=== PATIENT | male | born 1940 | race Caucasian/White ===

== ENCOUNTER → 2016-03-02 | Outpatient (CLI) | payer OTHER | LOC: HRAD 12:32 | DX: I20.9 Angina pectoris, unspecified (principal) ==

== ENCOUNTER 2017-05-17 09:09 | Day surgery (SDC) | payer OTHER ==
[~2017-05-17] VITALS: Ht 177.8 cm; Wt 91.1 kg
[2017-05-17] MEDS ORDERED: IOHEXOL 350 MG/ML 100 ML BTL (for Cath Lab) OTHER ONE (09:10)
[2017-05-17 09:25] VITALS: BP 130/82; PULSE 58; RESP 17; TEMP 97.6; O2SAT 97
[2017-05-17] MEDS ORDERED: ISOS30TA3 PO (10:05)
[2017-05-17] MEDS ORDERED: ZOSTCRE TOPICAL (10:05)
[2017-05-17] MEDS ORDERED: FLUT50SP EACH NARE (10:05)
[2017-05-17] MEDS ORDERED: METF500T PO ×2 (10:05→13:57)
[2017-05-17] MEDS ORDERED: METO50TA PO (10:05)
[2017-05-17] MEDS ORDERED: SYMB80AE INH (10:05)
[2017-05-17] MEDS ORDERED: HYDR1CRE RECTAL (10:05)
[2017-05-17] MEDS ORDERED: FLUO20CA12 PO (10:05)
[2017-05-17] MEDS ORDERED: LOVA40TA PO (10:05)
[2017-05-17] MEDS ORDERED: ECASA81 PO (10:05)
[2017-05-17] MEDS ORDERED: CLOP75TA PO (10:05)
[2017-05-17 10:09] LABS: AUTOMATED NEUTROPHIL # 5.1 TH/MM3 (1.8-7.7); BASOPHIL % 0.6 % (0.0-2.0); EOSINOPHIL # 0.5 TH/MM3 (0-0.4); HEMATOCRIT 41.5 % (39.0-51.0); HEMOGLOBIN 14.1 GM/DL (13.0-17.0); LYMPH % 21.3 % (9.0-44.0); LYMPHOCYTE # 1.6 TH/MM3 (1.0-4.8); MEAN CELL VOLUME 94.3 FL (80.0-100.0); MEAN CORPUSCULAR HGB CONC 33.9 % (32.0-36.0); MEAN PLATELET VOLUME 10.2 FL (7.0-11.0); MONO % 6.1 % (0.0-8.0); MONOCYTE # 0.5 TH/MM3 (0-0.9); PLATELET COUNT 171 TH/MM3 (150-450); RED CELL DISTRIBUTION WIDTH 13.3 % (11.6-17.2); WHITE BLOOD COUNT 7.7 TH/MM3 (4.0-11.0)
[2017-05-17 10:15] LABS: INTERNATIONAL NORMALIZED RATIO 1.1 RATIO; PROTHROMBIN TIME - PATIENT 11.4 SEC (9.8-11.6)
[2017-05-17] MEDS ORDERED: SODIUM CHLOR 0.9% 1000 ML INJ 1,000 ML IV SCH (10:15)
[2017-05-17 10:27] LABS: BICARBONATE 28.3 MEQ/L (21.0-32.0); CALCIUM 8.5 MG/DL (8.5-10.1); CREATININE 1.23 MG/DL (0.60-1.30)
[2017-05-17] MEDS ORDERED: MIDAZOLAM HCL 2 MG/2 ML VIAL ONE (12:44)
[2017-05-17] MEDS ORDERED: NITROGLYCERIN INJ 5 ML ONE (12:44)
[2017-05-17] MEDS ORDERED: HEPARIN-NS/PF FLUSH BAG 2,000 ML IV FLUSH ONE (12:44)
[2017-05-17] MEDS ORDERED: VERAPAMIL HCL 5 MG/2 ML VIAL ONE (12:44)
[2017-05-17] MEDS ORDERED: HEPARIN SODIUM - IV 10,000 UNITS/10 ML VIAL ONE (12:44)
--- NOTE | 2017-05-17 13:49 | CATHPROC ---
[facility]dog HIS Report Study Information Study Number Admission Scheduled Start Study Start [id number] May 17 2017 9:09AM 05/17/2017 May 17 2017 12:36PM [place] Service Cardiac Catheterization Admit Source Facility Department Other [facility] - Power Press Tender Physician and Clinical Staff Initial Shankar Bernard Material Liaison Adenike Berumen,JUSTICE Recorder Andreas Simmons,RT(R) Scrub Vanessa Oneal,RT(R) Procedures Performed Procedure Location (Site) Vessel Name Coronary Angiograms LCA Left Coronary Coronary Angiograms RCA Right Coronary IVUS Lft Main Left Coronary L Heart Cath Wire insertion Radial (right) Radial Art. Equipment Time Dowel Setting Machine Operator Description Size Mfg Part Number Used/Scraped WIRE, BALANCE MIDDLEWEIGHT [id number] 13:22 [employer] 190CM Used 190CM *[id number] TRANSDUCER, TRUWAVE [id number] 12:42 VILA ROSA * Used W/STOCKCOCK *[id number] *[id number] *[id number] 12:42 [employer] PACK, CCL CUSTOM * Used *[id number] 12:42 [employer] SUPPORT, ARTERIAL ADULT 97640 *[id number] Used [id number] 13:19 MEDTRON[employer]/AVE EBU 3.5 Z2 GUIDE CATHETER FR 6 Used *[id number] BAND, RADIAL COMPRESSION TR [id number] 13:35 [employer] MEDICAL 24CM Used SHORT 24 *[id number] 12:42 [employer] WIRE, EXCHANGE 260CM 3MMJ 260CM Used *[id number] 12:42 NAMIC MANIFOLD, 4 PORT * Used *[id number] 12:42 NYCOMED OMNIPAQUE, 350 MG, 150ML 150ML [id number] Used [id number] 12:42 LEIV[employer] MEDICAL BLANKET,WARM AIR CCL * Used *[id number] SHEATH, FR6 TRANSRADIAL [id number] 12:42 TERPhybridge MEDICAL FR 6 Used SLENDER 10CM *[id number] CATHETER, [facility] [employer] [place] [id number] 13:18 VOL[employer]O Used IMAGING *[id number] Equipment Model, Serial, Lot Number and Expiration Data Description Model Number Serial Number Lot Number Expiration Date CATHETER, [employer] [id number] 01-05-2019 IMAGING History: Current Medications Medication Dosage/Unit Route Frequency Last Date/Time Taken ASA PLAVIX Statins (any) LOPRESSOR History: Allergies Allergy Reaction pravastatin History: Risk Factors Family History of Hypertension Dyslipidemia Previous MT Previous Heart Failure Premature CAD Yes Yes Yes No No Prior Valve Prior PCI Prior PCIDate Prior CABG Surgery No Yes 04/06/2016 No Cerebrovascular Peripheral Artery Chronic Lung On Dialysis Diabetes Diabetes Therapy Disease Disease Disease No Yes No Yes Yes Oral History: Risk Factors Selection Items Diabetes Hypercholesterolemia-Lipid Low. Therapy History: CV Disease Selection Items Known CAD History: Stress Tests Stress or Imaging Studies Performed Yes Standard Exercise Stress Test No Stress Echo No Stress Test SPECT Stress Test SPECT Result Stress Test SPECT Ischemia Risk/Extent Yes Positive Low Stress Test CMR No Cardiac CTA Coronary Calcium Score No No History: Other Disease Selection Items CAD COPD HTN History: Other Current Smoker No Labs Hgb (g/dl) Hct (%) RBC (MIL/MM3) WBC (l/cumm) Platelets (thousands) 11.60-17.00 35.00-51.00 4.00-5.90 4.00-11.00 150.00-450.00 14.1 41.5 4.4 7.7 171 Glucose (mg/dl) BUN (mg/dl) Creatinine (mg/dl) BUN:Creatinine (1:x) 74.00-106.00 7.00-18.00 0.50-1.30 10.00-20.00 115 17 1.2 14.2 Na (meq/l) K (meq/l) Cl (meq/l) CO2 (mmol/L) Ca (mg/dl) 136.00-145.00 3.50-5.10 98.00-107.00 21.00-32.00 8.50-10.10 140 4.2 106 28.3 8.5 PT (sec) PTT (sec) INR (PTT:PT) 9.80-11.60 24.30-30.10 0.90-1.10 11.4 25.7 1.1 CPK-MB (ng/ML) 0.50-3.60 Not Drawn Medication Medication Total Dose (Bolus/Oral) Medication Total Dosage/Unit 1% XYLOCAINE 5 mL FENTANYL 25 mcg HEPARIN 5500 units RADIAL COCKTAIL 5 mL (Bolus) VERSED 0.5 mg Medications (Bolus/Oral) Medication Time Given Dosage/Unit Administered By Reason FENTANYL 05/17/2017 1:06:41 PM 25 mcg Adenike Berumen 25 mcg FENTANYL given in lab by Adenike Berumen RN in Left Forearm via Peripheral IV. VERSED 05/17/2017 1:06:52 PM 0.5 mg Adenike Berumen 0.5 mg VERSED given in lab by Adenike Berumen RN in Left Forearm via Peripheral IV. 1% XYLOCAINE 05/17/2017 1:07:03 PM 5 mL Shankar Paul 5 mL 1% XYLOCAINE given in lab by Shankar Paul in Right Radial via Subcutaneous. Ntg 200mcg Verapamil 2.5mg Heparin RADIAL COCKTAIL 05/17/2017 1:09:34 PM 5 mL (Bolus) Shankar Paul 3000U 5 mL (Bolus) RADIAL COCKTAIL given in lab by Shankar Paul via Radial. Using [Solution Name]. R ector: Ntg 200mcg Verapamil 2.5mg Heparin 3600U. HEPARIN 05/17/2017 1:19:50 PM 5500 units Adenike Berumen 5500 units HEPARIN given in lab by Adenike Berumen RN in Left Forearm via Peripheral IV. Medication (Drip) Medication Time Given Dosage/Unit Concentration/Unit Diluent (ml) Solution IV Solutions 05/17/2017 12:40:54 PM 0 mL (IV) 500 NaCl .9 IV Solutions given in lab by Adenike Berumen RN in Left Forearm via Peripheral IV. Pump/Drip Flow = 20 ml/hr using NaCl .9. Initial Case Assessment Cardiovascular HR Rhythm Chest Pain 56 Sinus 0 Edema Present Skin color Skin None Normal Warm Dry Circulatory - Right Pulses Dorsalis Pedis Femoral Radial 1 2 2 Scale (0,1,2,3,4,d) Scale (0,1,2,3,4,d) Neurological State Oriented to time-place- Alert Moves all extremities person Respiration - General Respiration Rate SpO2 (%) O2 (lpm) (B/min) 11 99 0 Final Case Assessment Cardiovascular HR Rhythm NIBP Chest Pain 57 Sinus 145/81 0 Edema Present Skin color Skin None Normal Warm Dry Circulatory - Right Pulses Dorsalis Pedis Femoral Radial 1 2 2 Scale (0,1,2,3,4,d) Scale (0,1,2,3,4,d) Neurological State Oriented to time-place- Alert Moves all extremities person Respiration - General Respiration Rate SpO2 (%) O2 (lpm) (B/min) 10 98 0 Chronological Log Time Study Chronological Log 12:33:36 Patient arrived via Bed. 12:36:50 Patient Name, D.O.B, / Armband Verified By R.N. 12:36:51 Consent signed by the physician and the patient and verified by the Power Press Tender staff. 12:36:52 Pre-op and post- op instructions given; patient acknowledges understanding of instructions. 12:36:53 Verbal Stimulation=2 Physical Stimulation=2 Airway=2 Respiration=2 TOTAL=8. (0=absent, 1=li mited, 2=present) 12:36:57 Presedation assessment performed by Power Press Tender RN. 12:36:58 Allens test performed on the right radial and ulnar artery. 12:37:01 Patient has been NPO for More than 6Hrs. 12:37:03 Skin Breakdown- none per patient. 12:37:03 Patient Warmer Placed on the Table. 12:37:06 Saul Prominences Protected 12:37:08 A # 20 IV was noted in the Forearm (left). Grade = 0 IV Solutions given in lab by Adenike Berumen, JUSTICE in Left Forearm via Peripheral IV. Pump/Drip F low = 20 ml/hr using 12:40:54 NaCl .9. 12:41:16 History and physical on the chart or being dictated. Assessment: Initial Case, HR=56 BPM, Rhythm=Sinus, Chest Pain=0, Edema=None, Color=Normal, Skin = Warm, Dry Right Pulses: Tony Ped=1, Femoral=2, Radial=2 12:41:18 Neurological: State=Alert, Ox3, SOTO Respiration: Resp=11 B/min, SpO2=99 %, O2=0 lpm Vitals capture started with the following parameters, Patient=Adult, Interval=5 min, Initial Pr nxpdjx=272 mmHg, 12:41:36 Deflation Rate=5 mmHg, Cuff placed on Unknown 12:41:54 Reference ECG taken 12:42:53 HR=57 bpm, WHKJ=538/96 mmhg, SpO2=99.0 %, Resp=6 B/min, Pain=0, Mary=10, Buck=2 12:47:13 HR=54 bpm, ZWYG=012/93 mmhg, SpO2=99.0 %, Resp=10 B/min, Pain=0, Mary=10, Buck=2 12:49:14 Right Radial and groin(s) prepped with 2% chlorhexidine, and draped after a 3 min. waiting time. 12:52:12 paged 12:52:16 HR=56 bpm, YRMF=109/96 mmhg, MsU0=332.0 %, Resp=5 B/min, Pain=0, Mary=10, Buck=2 12:53:04 Pressure channel 1 zeroed. 12:57:19 HR=60 bpm, XRFG=978/87 mmhg, PjJ6=968.0 %, Resp=11 B/min, Pain=0, Mary=10, Buck=2 13:02:03 MD arrived. 13:02:14 HR=60 bpm, FFSU=415/90 mmhg, OoN8=676.0 %, Resp=5 B/min, Pain=0, Mary=10, Buck=2 Time Out. Correct patient, correct procedure, correct physician, power injector not loaded with contrast with surgical 13:06:08 team present. Time Out Concurred by MD and individual staff in procedure. 13:06:20 Case Start 13:06:41 25 mcg FENTANYL given in lab by Adenike Berumen RN in Left Forearm via Peripheral IV. 13:06:52 0.5 mg VERSED given in lab by Adenike Berumen, JUSTICE in Left Forearm via Peripheral IV. 13:07:03 5 mL 1% XYLOCAINE given in lab by Shankar Paul in Right Radial via Subcutaneous. 13:07:15 HR=61 bpm, PKVO=664/92 mmhg, QrU0=232.0 %, Resp=13 B/min, Pain=0, Mary=10, Buck=2 13:08:19 Access site was Radial Artery. A SHEATH, FR6 TRANSRADIAL SLENDER 10CM FR 6 was advanced into the Radial (right) using the Perc utaneous 13:08:27 technique. 5 mL (Bolus) RADIAL COCKTAIL given in lab by Shankar Paul via Radial. Using [Solution Na me]. Reason: Ntg 13:09:34 200mcg Verapamil 2.5mg Heparin 3600U. A JR 4.0 INFINITI CATHETER FR 5 was advanced over a wire. OMNIPAQUE, 350 MG, 150ML 150ML was us ed for 13:09:50 injections. Recorded Pressure: LV, HR=62, Condition=Condition 1 13:10:49 (Left Ventricle) LV 112/3/12 Recorded Pressure: LV, Ao, HR=59, Condition=Condition 1 13:11:07 (Left Ventricle) LV 108/5/12, (Aorta) Ao 108/61/82 13:11:33 The RCA was injected and visualized at various angles. OMNIPAQUE, 350 MG, 150ML 150ML used . Recorded Pressure: Ao, HR=57, Condition=Condition 1 13:11:39 (Aorta) Ao 104/62/79 13:12:23 HR=61 bpm, LENS=355/62 mmhg, SpO2=94.0 %, Resp=7 B/min, Pain=0, Mary=10, Buck=2 After removing the current catheter a JL 3.5 INFINITI CATHETER FR 5 was advanced over a WIRE, E XCHANGE 260CM 13:12:55 3MMJ 260CM. 13:15:37 The LCA was injected and visualized at various angles. OMNIPAQUE, 350 MG, 150ML 150ML used . 13:17:45 Catheter was removed 13:17:52 HR=63 bpm, DHCK=025/78 mmhg, SpO2=94.0 %, Resp=13 B/min, Pain=0, Mary=10, Buck=2 A EBU 3.5 Z2 GUIDE CATHETER FR 6 was advanced over a wire. OMNIPAQUE, 350 MG, 150ML 150ML was u sed for 13:19:13 injections. 13:19:50 5500 units HEPARIN given in lab by Adenike Berumen, RN in Left Forearm via Peripheral IV. 13:20:57 Wire removed 13:22:19 HR=61 bpm, BLJM=625/83 mmhg, SpO2=96.0 %, Resp=13 B/min, Pain=0, Mary=10, Buck=2 13:26:13 A WIRE, BALANCE MIDDLEWEIGHT 190CM 190CM was inserted via Radial (right). 13:27:18 HR=61 bpm, WVZW=806/80 mmhg, SpO2=95.0 %, Resp=13 B/min, Pain=0, Mary=10, Buck=2 13:27:33 Interventional wire has crossed the lesion 13:27:38 An CATHETER, [employer] was advanced through the lesion. Images saved o o IVUS hard drive 13:28:46 IVUS in progress using ivus 13:32:19 HR=55 bpm, NGKB=622/81 mmhg, SpO2=96.0 %, Resp=9 B/min, Pain=0, Mary=10, Buck=2 13:32:28 IVUS catheter removed 13:34:26 Wire removed 13:35:00 Case End Assessment: Final Case, HR=57 BPM, Rhythm=Sinus, LHGR=105/81 mmhg, Chest Pain=0, Edema=None, Color=Normal, Skin = Warm, Dry 13:35:10 Right Pulses: Tony Ped=1, Femoral=2, Radial=2 Neurological: State=Alert, Ox3, SOTO Respiration: Resp=10 B/min, SpO2=98 %, O2=0 lpm Radial Compression Device Used. 11 mLs of air placed in BAND, RADIAL COMPRESSION TR SHORT 24 24 CM. Affected 13:36:41 hand 98 % O2 saturation. 13:37:03 No case complications noted. 13:37:04 Cine recording checked. 13:37:47 Bedside Report will be given. 13:37:53 A Left Heart Cath was performed. 13:38:03 HR=58 bpm, XBZE=408/88 mmhg, SpO2=98.0 %, Resp=11 B/min, Pain=0, Mary=10, Buck=2 13:42:21 HR=58 bpm, DUEK=293/84 mmhg, SpO2=98.0 %, Resp=10 B/min, Pain=0, Mary=10, Buck=2 13:46:03 Patient moved to stretcher 13:47:17 Vitals capture stopped. End Study - Contrast Media Used In Study Contrast Total Opened (mL) Total Used (mL) Total Wasted (mL) Omnipaque 150 65 85 End Study - Maximum Contrast Load Max Contrast Load (mL) 379.2 End Study - Radiation Exposure Fluoro Time (minutes) 6.6 End Study - Patient Disposition Complications Transferred To Interventional Outcome No Outpatient Bed No attempt made
[2017-05-17] MEDS ORDERED: MISC INFORMATION XX ONE (14:00)
--- NOTE | 2017-05-17 15:28 | PD.CAR.PN ---
CVT Progress Note Subjective/Hospital Course: pt seen and evaluated / full consult to follow sts discussed with pt RISK SCORES About the STS Risk Calculator Procedure: CAB Only Risk of Mortality: 2.004% Morbidity or Mortality: 15.18% Long Length of Stay: 6.047% Short Length of Stay: 40.35% Permanent Stroke: 1.492% Prolonged Ventilation: 8.954% DSW Infection: 0.544% Renal Failure: 5.236% Reoperation: 5.474% Objective: Vital Signs Date Time Temp Pulse Resp B/P (MAP) Pulse Ox O2 Delivery O2 Flow Rate FiO2 05/17/17 09:25 97.6 58 17 130/82 (98) 97 Labs: Laboratory Tests Test 05/17/17 09:45 White Blood Count 7.7 TH/MM3 (4.0-11.0) Red Blood Count 4.40 MIL/MM3 (4.50-5.90) Hemoglobin 14.1 GM/DL (13.0-17.0) Hematocrit 41.5 % (39.0-51.0) Mean Corpuscular Volume 94.3 FL (80.0-100.0) Mean Corpuscular Hemoglobin 32.0 PG (27.0-34.0) Mean Corpuscular Hemoglobin Concent 33.9 % (32.0-36.0) Red Cell Distribution Width 13.3 % (11.6-17.2) Platelet Count 171 TH/MM3 (150-450) Mean Platelet Volume 10.2 FL (7.0-11.0) Neutrophils (%) (Auto) 66.0 % (16.0-70.0) Lymphocytes (%) (Auto) 21.3 % (9.0-44.0) Monocytes (%) (Auto) 6.1 % (0.0-8.0) Eosinophils (%) (Auto) 6.0 % (0.0-4.0) Basophils (%) (Auto) 0.6 % (0.0-2.0) Neutrophils # (Auto) 5.1 TH/MM3 (1.8-7.7) Lymphocytes # (Auto) 1.6 TH/MM3 (1.0-4.8) Monocytes # (Auto) 0.5 TH/MM3 (0-0.9) Eosinophils # (Auto) 0.5 TH/MM3 (0-0.4) Basophils # (Auto) 0.0 TH/MM3 (0-0.2) CBC Comment DIFF FINAL Differential Comment Prothrombin Time 11.4 SEC (9.8-11.6) Prothromb Time International Ratio 1.1 RATIO Activated Partial Thromboplast Time 25.7 SEC (24.3-30.1) Blood Urea Nitrogen 17 MG/DL (7-18) Creatinine 1.23 MG/DL (0.60-1.30) Random Glucose 115 MG/DL (74-106) Calcium Level 8.5 MG/DL (8.5-10.1) Sodium Level 140 MEQ/L (136-145) Potassium Level 4.2 MEQ/L (3.5-5.1) Chloride Level 106 MEQ/L (98-107) Carbon Dioxide Level 28.3 MEQ/L (21.0-32.0) Anion Gap 6 MEQ/L (5-15) Estimat Glomerular Filtration Rate 57 ML/MIN (>89) Result Diagram: 05/17/17 0945 05/17/17 0945 Ivelisse Fagan May 17, 2017 15:28
[2017-05-17 15:44] LABS: TOTAL BILIRUBIN ADULT 0.4 MG/DL (0.2-1.0); TOTAL PROTEIN 7.5 GM/DL (6.4-8.2)
[2017-05-17 16:05] LABS: ALBUMIN 3.8 GM/DL (3.4-5.0); DIRECT BILIRUBIN ADULT 0.1 MG/DL (0.0-0.2); INDIRECT BILIRUBIN 0.3 MG/DL (0.0-0.8)
--- NOTE | 2017-05-17 16:20 | MB ---
cc: Ivelisse Fagan Sohit MD DATE: 05/17/2017 DATE OF : 1940 HISTORY OF PRESENT ILLNESS: A 76-year-old male, patient of Dr. Vicki Stark, Dr. Paul, who is followed also by the [facility]. History of coronary artery disease with prior drug-eluting stent to the LAD in April 2016. He has been noticing some off and on mild chest discomfort but significant shortness of breath and fatigue since January 2017. He underwent nuclear stress testing with the [facility] and then underwent cardiac catheterization today by Dr. Paul, which showed an EF of 65%. The left main had a 70% stenosis, the diagonal 90%, the RCA 90%. We were consulted for coronary artery bypass grafting. PAST MEDICAL HISTORY: Includes coronary artery disease, kidney stones, COPD, depressive disorder, primary essential hypertension, some hearing loss, hyperlipidemia, hypertension, osteoarthritis, schizophrenia, diabetes mellitus on oral medications. Please note that he has a history of some left carotid disease, approximately 70-80% and was supposed to followup for probable carotid endarterectomy by Dr. Nogueira in [place] at the [facility]. PAST SURGICAL HISTORY: Include cardiac catheterization on 04/22/2017 with drug-eluting stent x2 to the LAD. He had a cyst removed from his back, parathyroidectomy, tonsillectomy, and lithotripsy. ALLERGIES: INCLUDE PRAVACHOL, however, he can tolerate lovastatin. HOME MEDICATIONS: Include: 1. Aspirin. 2. Capsaicin. 3. Plavix. 4. Prozac. 5. Flonase. 6. Imdur. 7. Lovastatin. 8. Metformin. 9. Metoprolol. 10. Symbicort. FAMILY HISTORY: Father at 71 from an [place]. Mother at 80 from a stroke. SOCIAL HISTORY: The patient is single. Quit smoking in 1960, smoked for about 8 years. Occasional alcohol. Lives alone, takes care of himself. REVIEW OF SYSTEMS: GENERAL: No night sweats, fever, heat and cold intolerance. SKIN: No psoriasis, itching or hives. HEENT: No blurred vision, hearing loss. RESPIRATORY: Positive for shortness of breath. CARDIOVASCULAR: As above in the HPI. GASTROINTESTINAL: Occasional constipation. GENITOURINARY: No burning, frequency, urgency. CENTRAL NERVOUS SYSTEM: No history of TIA, CVA or seizure disorder. ENDOCRINOLOGY: Positive for diabetes. PHYSICAL EXAMINATION: VITAL SIGNS: Blood pressure 130/80, heart rate of 58, temperature-max 97.6. GENERAL: Awake, alert, in no acute distress. HEENT: Head is normocephalic, atraumatic. Pupils equal and reactive. Oral mucosa pink, moist. NECK: Supple. No JVD. CARDIOVASCULAR: Hear sounds S1, S2. Regular rate and rhythm. No audible rubs or gallops. LUNGS: Clear to auscultation. No wheezes, rales or rhonchi. ABDOMEN: Soft, nontender. No masses or organomegaly. EXTREMITIES: No cyanosis, clubbing, or edema. LABORATORY DATA: Hemoglobin 14, hematocrit of 41, white cell count of 7, platelet count of 171. Sodium 140, potassium 4.2, BUN is 17, creatinine 1.23. INR 1.1. X-RAYS: Chest x-ray pending. IMPRESSION: A 76-year-old male with multivessel coronary artery disease, normal ejection fraction with a 70% left main. PLAN: At this time the patient will be scheduled as an outpatient for coronary artery bypass grafting x4 on May. The procedures, alternatives and risks have been discussed with the patient. He is agreeable to proceed. SDS data will be discussed with the patient and documented in the electronic record. The patient must hold the Plavix 5 days prior to surgery. TOREY Cote MD JRT/FLOR , 03:46 PM , 04:19 PM RADHA
--- NOTE | 2017-05-17 16:31 | RADRPT ---
EXAM DATE/TIME: 05/17/2017 15:14 [facility] COMPARISON: No previous studies available for comparison. INDICATIONS : Evaluate for pneumonia, pneumothorax, or other communicable disease. MEDICAL HISTORY : None. SURGICAL HISTORY : None. ENCOUNTER: Initial ACUITY: 1 day PAIN SCORE: 0/10 LOCATION: Bilateral chest FINDINGS: A single view of the chest demonstrates the lungs to be symmetrically aerated without evidence of mas s, infiltrate or effusion. The cardiomediastinal contours are unremarkable. Scattered granulomas in both lungs. Osseous structures are intact. CONCLUSION: No acute disease. Yuri Tillman MD FACR on May 17, 2017 at 16:28 Board Certified Radiologist. This report was verified electronically.
--- NOTE | 2017-05-17 16:34 | RADRPT ---
EXAM DATE/TIME: 05/17/2017 15:24 [facility] COMPARISON: No previous studies available for comparison. INDICATIONS : Preop cardiac surgery. MEDICAL HISTORY : Hyperlipidemia. Coronary artery disease. HTN. Diabetes. Sleep apnea. COPD. SURGICAL HISTORY : Coronary artery stent. Cardiac cath. ENCOUNTER: Initial ACUITY: 1 day PAIN SCORE: 0/10 LOCATION: Bilateral leg. TECHNIQUE: Venous ultrasound of the left and right leg was performed from the inguinal ligament to the proximal calf. Real-time, color Doppler and spectral tracing, compression and augmentation techniques were us ed. FINDINGS: RIGHT LEG: There is normal compressibility of the deep venous system from the inguinal region to the proximal ca lf. No echogenic clot is seen in the lumen of the common femoral, femoral, popliteal, and posterior tibial veins. There is a normal response of the venous system to proximal and distal augmentation an d respiration. LEFT LEG: There is normal compressibility of the deep venous system from the inguinal region to the proximal ca lf. No echogenic clot is seen in the lumen of the common femoral, femoral, popliteal, and posterior tibial veins. There is a normal response of the venous system to proximal and distal augmentation an d respiration. CONCLUSION: Negative for DVT thrombosis Yuri Tillman MD FACR on May 17, 2017 at 16:32 Board Certified Radiologist. This report was verified electronically.
--- NOTE | 2017-05-17 16:49 | RADRPT ---
EXAM DATE/TIME: 05/17/2017 15:31 [facility] COMPARISON: No previous studies available for comparison. INDICATIONS : Preop cardiac surgery. MEDICAL HISTORY : Hyperlipidemia. Coronary artery disease. HTN. Diabetes. Sleep apnea. COPD. SURGICAL HISTORY : Coronary artery stent. Cardiac cath. ENCOUNTER: Initial ACUITY: 1 day PAIN SCORE: 0/10 LOCATION: Bilateral leg. GREATER SAPHENOUS VEIN THIGH: PROXIMAL: Right 8 mm Left 4 mm MID: Right 4 mm Left 2 mm DISTAL: Right 3 mm Left 2 mm CALF: PROXIMAL: Right 2 mm Left 2 mm MID: Right 1 mm Left 2 mm DISTAL: Right 3 mm Left 2 mm FINDINGS: The venous system of the lower extremities are patent by color Doppler imaging. Measurements of the leg veins (in mm) are listed above. CONCLUSION: Vein mapping as above Yuri Tillman MD FACR on May 17, 2017 at 16:46 Board Certified Radiologist. This report was verified electronically.
--- NOTE | 2017-05-17 16:49 | RADRPT ---
EXAM DATE/TIME: 05/17/2017 15:51 [facility] COMPARISON: No previous studies available for comparison. INDICATIONS : Preop cardiac surgery. MEDICAL HISTORY : Hyperlipidemia. Coronary artery disease. HTN. Diabetes. Sleep apnea. COPD. SURGICAL HISTORY : Coronary artery stent. Cardiac cath. ENCOUNTER: Initial ACUITY: 1 day PAIN SCORE: 0/10 LOCATION: Bilateral neck PEAK SYSTOLIC VELOCITIES (cm/sec): ICA/CCA RATIO: Right: 1.2 Left: 8.0 ICA: Right: 116 Left: 512 CCA: Right: 94 Left: 64 ECA: Right: 105 Left: 207 VERTEBRAL: Right: 36 retrograde Left: 103 antegrade Elevated flow velocities and ICA/CCA ratios have been found to correlate with increased degrees of vessel stenosis, calculated as percentage of diameter relative to a normal segment of distal ICA/CCA FINDINGS: RIGHT CAROTID: No significant stenosis is visualized. The waveforms are within normal limits. LEFT CAROTID: No significant stenosis is visualized. The waveforms are within normal limits. VERTEBRAL ARTERIES: Antegrade flow is seen in both vertebral arteries. MISCELLANEOUS: None. CONCLUSION: Negative for hemodynamically significant stenosis Yuri Tillman MD FACR on May 17, 2017 at 16:46 Board Certified Radiologist. This report was verified electronically.
--- NOTE | 2017-05-17 17:16 | EKG ---
Date Performed: 05/17/2017 Time Performed: 10:06:36 PTAGE: 76 years EKG: Sinus rhythm . Inferior T wave changes are nonspecific Borderline ECG NO PREVIOUS TRACING DOCTOR: Nate Coyle Interpretating Date/Time 05/17/2017 17:15:55
[2017-05-17 19:24] LABS: AMORPHOUS SEDIMENT, URINE OCC; BILIRUBIN, URINE NEG (NEG); BLOOD, URINE NEG (NEG); GLUCOSE,URINE NEG (NEG); KETONE, URINE NEG (NEG); NITRITE,URINE NEG (NEG); PH, URINE 7.5 (5.0-8.5); URINE COLOR YELLOW (YELLW/STRAW); URINE LEUKOCYTE ESTERASE NEG (NEG)
--- NOTE | 2017-05-18 01:01 | MA ---
cc: Shankar Paul DO DATE: 05/17/2017 PROCEDURE: Left heart catheterization, coronary angiogram, moderate sedation 30 minutes, intravascular ultrasound left main. PREPROCEDURE DIAGNOSES: Preoperative cardiovascular examination, abnormal stress test, chest pain. 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 MEDICATIONS: Versed 0.5 mg, fentanyl 25 mcg, verapamil 2.5 mg, nitroglycerin 200 mcg, heparin 9100 units. CONTRAST USED: 65 mL FLUOROSCOPY: 6.6 minutes. MODERATE SEDATION: 30 minutes. FRAILTY SCORE: 3. ESTIMATED BLOOD LOSS: 10 mL PROCEDURAL SUMMARY: Augustus Maradiaga is a pleasant 76-year-old male who I see in the office and is undergoing preoperative cardiovascular exam for carotid endarterectomy. He was found to have an abnormal stress test at the [facility] and recommended cardiac catheterization. Risks, benefits and alternatives were explained to him and he consented to such. He was brought to the lab and prepped in the usual sterile fashion. The right radial artery was accessed using a modified Seldinger technique and placement of a 5/6 [place] Slender sheath. This was easily aspirated and flushed. A JR4 was advanced over a J-wire to the ascending aorta and across the aortic valve for measurement of left ventricular pressure. This was pulled back across the aortic valve showing no significant gradient of aortic stenosis. JR4 was used for selective angiography of the right coronary artery system. This was exchanged out for a JL3.5, which was used for selective angiography of the left coronary artery system. Due to significant dampening when a catheter was engaged in left main I felt that this needed to be further investigated. An EBU 3.5 guide was engaged in the left main. The patient was given heparin as an anticoagulant. BMW wire was advanced into the distal LAD. IVUS catheter was advanced into the LAD and upon pullback recordings were done. Review of the images showed that the distal left main has an area of 5.0 and the ostial left main has an area of 5.6 consistent with physiologic stenosis. The wire was removed. Guide was removed. A radial band was placed over the arteriotomy site for hemostasis. FINDINGS: LEFT MAIN: 70% disease. By IVUS this is an area of 5.0 distally and 5.6 ostially, consistent with severe stenosis. It bifurcates into an LAD and circumflex. LEFT ANTERIOR DESCENDING: Normal size vessel with stent in the proximal to mid portion, patent. Stent noted in the distal portion is also patent. It gives off 1 major diagonal which appears to be pinched with a 90% stenosis in the ostial portion due to previous stent placement. LEFT CIRCUMFLEX: Normal size vessel with mild luminal irregularities. It gives off a major obtuse marginal with no significant disease. RIGHT CORONARY ARTERY: Normal size vessel with mild luminal irregularities distally. It gives off a PDA, which has 50% disease and then an 80% lesion in the posterolateral branch. LEFT VENTRICULAR END DIASTOLIC PRESSURE: 12. IMPRESSIONS: 1. Multivessel coronary artery disease with left main disease as above. 2. Preoperative cardiovascular examination for carotid endarterectomy. 3. Abnormal stress test. 4. Chest pain. RECOMMENDATIONS: 1. Mr. Maradiaga appears to have significant left main disease as well as disease noted in his diagonal and posterolateral branch. 2. He will be recommended coronary artery bypass grafting. This was discussed with cardiothoracic surgery and they will see him in consultation. 3. [facility] and most likely repeat his carotid ultrasound while here. 4. I feel that he is safe to be discharged on his current medical regimen and follow up with CT surgery for elective coronary artery bypass grafting. 5. This was discussed with him and he understands no strenuous activity until surgery. If he has any further chest pain, he will present to the emergency room immediately and we will reevaluate the timing of his operation. Thank you for allowing me to see Augustus Maradiaga. If there are any questions please to not hesitate to call. Shankar Paul DO VGP/rt , 12:39 AM , 01:00 AM
--- NOTE | 2017-05-19 09:02 | RSPPFT ---
DATE OF PROCEDURE: 05/17/17 COMMENTS: Spirometry shows FVC of 3.6 at 117% of predicted, FEV1 of 2.6 at 119%, FEV1/FVC is normal. Flow is normal at FEF 25-75. Flow volume loop indicates a normal pattern. IMPRESSION: 1. Normal spirometry. 2. Post-bronchodilator study was not done.
== END 2017-05-17 18:30 | disposition home or self-care (01) ==
LOC: HDOC 09:09 → HDIC 09:12 → HDOC 18:30
PROVIDERS: ATTEND Nuclear Medicine Nuclear Cardiology
DX: I25.10 Atherosclerotic heart disease of native coronary artery without angina pectoris (principal); I10 Essential (primary) hypertension; E78.5 Hyperlipidemia, unspecified; E11.9 Type 2 diabetes mellitus without complications; J44.9 Chronic obstructive pulmonary disease, unspecified; G47.30 Sleep apnea, unspecified; R06.02 Shortness of breath; R53.83 Other fatigue; R07.9 Chest pain, unspecified; F20.9 Schizophrenia, unspecified; F32.9 Major depressive disorder, single episode, unspecified; Z79.84 Long term (current) use of oral hypoglycemic drugs; Z87.442 Personal history of urinary calculi; Z95.5 Presence of coronary angioplasty implant and graft; Z79.82 Long term (current) use of aspirin
CPT/HCPCS: 71045; 80048; 80076; 81001; 85025; 85610; 85730; 86850; 86900; 86901; 87641; 92978; 93005; 93458; 93880; 93970; 93998; 94010; 99152; 99153; C1753; C1769; C1887; C1893; J1644; J2250; J3010; Q9967

== ENCOUNTER 2017-05-29 05:10 | Inpatient (IN) | payer OTHER, MEDICARE ==
[~2017-05-29] VITALS: Ht 177.8 cm; Wt 93.6 kg
[2017-05-29] VITALS (10 sets, daily range): BP systolic 81–140; BP diastolic 39–77; PULSE 59–75; RESP 11–18; TEMP 97.4–97.9; O2SAT 91–100
[~2017-05-29 05:10] MED LIST: CLOP75TA PO; ECASA81 PO; FLUO20CA12 PO; FLUT50SP EACH NARE; HYDR1CRE RECTAL; ISOS30TA3 PO; LOVA40TA PO; METF500T PO; METO50TA PO; SYMB80AE INH; ZOSTCRE TOPICAL
[2017-05-29] MEDS ORDERED: CHLORHEXIDINE GLUCONATE 2 % 1 PACK (2 CLOTHS) TOPICAL PRN (05:30)
[2017-05-29] MEDS ORDERED: INSULIN REGULAR 100 UNITS in NS 100 ML IV PRN (05:30)
[2017-05-29] MEDS ORDERED: SODIUM CHLORIDE 0.9% FLUSH 10 ML FLUSH IV FLUSH PRN ×2 (05:30→12:15)
[2017-05-29] MEDS ORDERED: DEXTROSE 50% IN WATER 50 ML VIAL(D50) IV PUSH PRN ×2 (05:30→12:15)
[2017-05-29] MEDS ORDERED: ceFAZolin 2 GM PREMIX 50 ML IV SCH (05:30)
[2017-05-29] MEDS ORDERED: LACTATED RINGER'S 1000 ML IV PRN (05:30)
[2017-05-29] MEDS ORDERED: CHLORHEXIDINE GLUCONATE 4% SOLN 120 ML BTL TOPICAL SCH (05:30)
[2017-05-29] MEDS ORDERED: METOPROLOL TARTRATE 25 MG TAB PO SCH (05:30)
[2017-05-29] MEDS ORDERED: POVIDONE IODINE 5% (ANTISEPSIS KIT) 4 APPLICATIONS EACH NARE PRN (05:30)
[2017-05-29] MEDS ORDERED: SODIUM CHLORID 0.9% 500 ML IV PRN (05:30)
[2017-05-29] MEDS ORDERED: ceFAZolin 2 GM PREMIX 50 ML ONE (06:31)
[2017-05-29] MEDS ORDERED: VANCOMYCIN HCL 1000 MG VIAL ONE (06:31)
[2017-05-29] MEDS ORDERED: HEPARIN SODIUM - SQ 10,000 UNITS/ML VIAL ONE ×2 (06:31→06:32)
--- NOTE | 2017-05-29 08:34 | PD.CAR.PN ---
CVT Progress Note Subjective/Hospital Course: A 76-year-old male, patient of Dr. Vicki Stark, Dr. Paul, who is followed also by the [facility]. Initially seen 05/17/17.History of coronary artery disease with prior drug-eluting stent to the LAD in April 2016. He has been noticing some off and on mild chest discomfort but significant shortness of breath and fatigue since January 2017. He underwent nuclear stress testing with the [facility] and then underwent cardiac catheterization today by Dr. Paul, which showed an EF of 65%. The left main had a 70% stenosis, the diagonal 90%, the RCA 90%. PAST MEDICAL HISTORY: Includes coronary artery disease, kidney stones, COPD, depressive disorder, primary essential hypertension, some hearing loss, hyperlipidemia, hypertension, osteoarthritis, schizophrenia, diabetes mellitus He also has history of some left carotid disease, approximately 70-80% and was supposed to followup for probable carotid endarterectomy by Dr. Nogueira in [place] at the [facility]. PAST SURGICAL HISTORY: Include cardiac catheterization on 04/22/2017 with drug- eluting stent x2 to the LAD. 05/29 pt admitted electively for CABG Objective: Vital Signs Date Time Temp Pulse Resp B/P (MAP) Pulse Ox O2 Delivery O2 Flow Rate FiO2 05/29/17 05:35 97.7 66 15 144/85 (104) 94 (1) Hyperlipemia (2) Hypertension (3) Carotid artery disease (4) Coronary artery disease (5) COPD (chronic obstructive pulmonary disease) (6) Depression Ivelisse Fagan May 29, 2017 08:34
--- NOTE | 2017-05-29 08:44 | HHI.FF ---
Face to Face Verification Diagnosis: (1) S/P CABG (coronary artery bypass graft) (2) COPD (chronic obstructive pulmonary disease) (3) Coronary artery disease (4) Depression (5) Hyperlipemia (6) Hypertension (7) Carotid artery disease Home Health Nursing Order: Diabetic education Medication education-adverse effect Wound care and dressing changes Nursing assessment with vital signs Instructions: Heart and Vascular Surgery patients *Special attention to sternal dressing Mandatory frequency Assess and evaluation, 4 days in a row The next week 3X week 2 times a week for 4 weeks 1 time a week for 5 weeks Schedule Heart and Vascular patients for full 60 day certification period Initial visit Review Open Heart Surgery Discharge Instructions (Sternal precautions, Activity, Elastic hose, Incision care, Driving, Incentive spirometry, Smoking, [place], Work and other) Need Betadine to paint incision Medication reconciliation Importance of follow up care/ check on appointments Make calendar record temperature daily When to call [facility] nurse, review instructions, phone list Incentive Spirometry, demonstration Visit 1- Begin discharge instruction for patient family and/ or caregiver using teach back method- Signs and symptoms of infection Disease characteristics Medicines and side effects Foods and nutrition/ appetite Infection control/ hand washing/ hygiene Visit 2- Continue teaching Discharge instructions- include additional information on smoking cessation , sternal dressing (sternal vac) Visit 3- Continue teaching- Cough and deep breathing, incision monitoring. Choose my plate Visit 4- Continue teaching- Discuss limitations Discuss how they are feeling Discuss progress toward goals Remaining visits- continue teaching and monitoring For any questions please call : Monday 8am-5pm Heart & Vascular Surgery Office ( Dr. Nguyen & Dr. De Leon), After Hours / Nights (5pm -8am) Weekends and Holidays Please call [facility] Cardiac Intermediate Care Unit (CIC) Charge Nurse PREVENA Single Use Negative Wound Therapy System Caregiver Instruction Sheet 1. A Prevena dressing system was applied to the chest incision during surgery , to promote wound healing. It works via a suction device (negative pressure wound therapy) to remove low to moderate levels of exudate (drainage) and infectious materials. We recommend that the device stay in place for up to seven days, from day of surgery. 2. Day of Surgery__/ Day of Removal ___06/05/17 3. The dressing should only be removed by a health director career services. Please arrange removal of device to coincide with Home Health visit and or with Nursing staff at Rehab 4. If skin reddening or irritation of skin occurs, or excessive drainage, please notify the Cardiovascular Surgeons office at [phone]. 5. Light showering is permissible; however the pump should be disconnected and placed in safe location, where it will not get wet. The dressing should not be exposed to direct spray or submerged in water. No bath tub / shower only. Ensure the end of the tubing attached to the dressing is facing down so that water does not enter the top of the tube. 6. To remove Prevena dressing: press purple button to turn off device / remove the suction. Then disconnect the tubing from the pump. The fixation strips should be stretched away from the skin and the dressing lifted at one corner and peeled back until it has been fully removed. 7. After removal, it is ok to shower daily using liquid dial soap and clean wash cloth, rinse and pat dry, and leave incision open to air dry. For any concerns regarding Prevena dressing, and or wounds, please contact Gwen Rodriguez, patient navigator at [phone] or notify the Cardiovascular Surgeons office at [phone]. Incentive spirometry Q1 hr x 10, while awake, also use acapella device hourly whole awake Sternal Breast Bone Precautions: NO pushing or pulling, ( pt must use sternal pillow to support chest with all activities and with coughing ( takes up to 3 months breast bone to heal ) Daily incision care: ok to shower daily, no tub bath. Wash all incisions with liquid dial soap, clean wash cloth to each site, rinse and pat dry. Observe for any signs of infection, such as drainage which is dark yellow, cooper, green or foul smelling. Immediately report to the surgeon any drainage from the chest incision, or legs, and for any abnormal drainage from the chest tube sites. Notify surgeon if any temp >101.5 degrees F. When specialty dressing removed/ or if you do not have one, continue to shower daily as above, then rinse and pat incision dry and paint with betadine daily x 5 days. Allow steri strips to fall off if you have any. Avoid lotions, creams, salves, oils, etc. for the first month Please see attached forms for additional instructions regarding post Open Heart specialty wound vacuum dressings. AURE or Prevena , Dressing to be removed by Nursing staff on __06/05/17 F/U appointment: as per DC instructions: PCP in 2 weeks, CV surgeon 2 weeks, Erp Manager 3-4 weeks For any questions regarding incisions/ dressing / meds / post op care or above Symptoms, Monday 8am-5pm Heart & Vascular Surgery Office ( Dr. Nguyen & Dr. De Leon), After Hours / Nights (5pm -8am) Weekends and Holidays Please call [facility] Cardiac Intermediate Care Unit (CIC) Charge Nurse I have seen patient Augustus Maradiaga on 05/29/17. My clinical findings support the need for the requested home health care services because: Deconditioned w/ increased weakness I certify that my clinical findings support that this patient is homebound because: Post-op weakness Ivelisse Fagan May 29, 2017 08:44
[2017-05-29] MEDS: CEFAZOLIN 500 MG in NS IRR BTL 500 ML IRRIGATION SCH ×2 (09:43→11:14)
[2017-05-29] MEDS: PAPAVERINE 60 MG-NITROGLYCERIN 100 MCG-DILTIAZEM 100 MG in NS 100 ML IRRIGATION SCH ×8 (09:45→11:15)
[2017-05-29] MEDS ORDERED: PHENYLEPH/NS 1000 MCG/10 ML SYR IV ONE (12:00)
[2017-05-29] MEDS ORDERED: LACTATED RINGER'S 1000 ML INJ 2,000 ML IV ONE (12:00)
[2017-05-29] MEDS ORDERED: LIDOCAINE HCL 1% PF 5 ML AMPULE OTHER ONE (12:00)
[2017-05-29] MEDS ORDERED: MAGNESIUM SULFATE 1 GM/2 ML VIAL IV ONE (12:00)
[2017-05-29] MEDS ORDERED: PROTAMINE SULFATE 250 MG/25 ML VIAL IV ONE (12:00)
[2017-05-29] MEDS ORDERED: CALCIUM CHLORIDE 10% SOLN 1 GRAM/10 ML SYR IV ONE (12:00)
[2017-05-29] MEDS ORDERED: HEPARIN SODIUM - SQ 10,000 UNITS/ML VIAL OTHER ONE (12:00)
[2017-05-29] MEDS ORDERED: NORMOSOL R INJ 1,000 ML IV ONE (12:00)
[2017-05-29] MEDS ORDERED: DEXMEDETOMIDINE HCL 200 MCG/2 ML VIAL IV ONE (12:00)
[2017-05-29] MEDS ORDERED: GLYCOPYRROLATE 0.2 MG/ML VIAL IV ONE (12:00)
[2017-05-29] MEDS ORDERED: ePHEDrine/NS 25 MG/5 ML SYRINGE IV ONE (12:00)
[2017-05-29] MEDS ORDERED: AMINOCAPROIC ACID INJ 250 MG/ML 20 ML VIAL IV ONE (12:00)
[2017-05-29] MEDS ORDERED: SODIUM CHLORID 0.9% 500 ML INJ 500 ML IV ONE (12:00)
[2017-05-29] MEDS ORDERED: SODIUM CHLOR 0.9% 250 ML INJ 250 ML IV ONE (12:00)
[2017-05-29] MEDS ORDERED: VECURONIUM BROMIDE 10 MG VIAL IV ONE (12:00)
[2017-05-29] MEDS ORDERED: NEOSTIGMINE METHYLSULFATE 10 MG/10 ML VIAL IV PUSH ONE (12:00)
[2017-05-29] MEDS ORDERED: NS 100 ML (PAB BAG) 100 ML IV ONE (12:00)
[2017-05-29] MEDS ORDERED: ceFAZolin INJ 1,000 MG VIAL ONE (12:10)
[2017-05-29] MEDS ORDERED: ACETAMINOPHEN 650 MG SUPP RECTAL PRN (12:15)
[2017-05-29] MEDS ORDERED: RESP: RACEPINEPHRINE 2.25% 0.5 ML NEB NEB PRN (12:15)
[2017-05-29] MEDS ORDERED: POTASSIUM CHLORIDE 20 MEQ CONTROLLED RELEASE TAB PO PRN ×2 (12:15)
[2017-05-29] MEDS ORDERED: POTASSIUM CHLOR 20 MEQ PREMIX 100 ML IV PRN ×3 (12:15)
[2017-05-29] MEDS ORDERED: CALCIUM CHLORIDE 10% 1 GRAM/10 ML VIAL IV PUSH PRN (12:15)
[2017-05-29] MEDS ORDERED: Post-op Orders (for Pharmacy) OTHER ONE (12:15)
[2017-05-29] MEDS ORDERED: SODIUM BICARBONATE 8.4% SOLN 50 MEQ/50 ML VIAL IV PUSH PRN ×2 (12:15)
[2017-05-29] MEDS ORDERED: MAGNESIUM SULFATE INJ 2 GM in SODIUM CHLORIDE 0.9% INJ 100 ML IV PRN ×4 (12:15)
[2017-05-29] MEDS ORDERED: CALCIUM CHLORIDE INJ 1 GM in SODIUM CHLORIDE 0.9% INJ 100 ML IV PRN (12:15)
--- NOTE | 2017-05-29 12:23 | PD.OP ---
cc: Leticia Nguyen MD; Shankar Paul DO Operative Report Date of Surgery: May 29, 2017 Preoperative Diagnosis: Postoperative Diagnosis: Procedure: 1. Off-pump Coronary Artery Bypass Grafting x 4 with Left Internal Mammary Artery (ALFRED) to Left Anterior Descending (LAD), reverse saphenous vein graft to the Diagonal 1 (D1) branch of the LAD, reverse saphenous vein graft to the Posterolateral Branch of the Right Coronary Artery (RPLB), reverse saphenous vein graft to the Obtuse Marginal 1 (OM1) 2. Right Leg Endoscopic Vein [place] 3. Intraoperative Vein Mapping Surgeon: Leticia Nguyen Brown Sourer(s): Joshua Gonzalez Operation and Findings: PREPROCEDURE DIAGNOSES 1. Severe Multi Vessel Coronary Artery Disease. 2. Left Main Stenosis POSTPROCEDURE DIAGNOSES Same SURGICAL PROCEDURE 1. Off-pump Coronary Artery Bypass Grafting x 4 with Left Internal Mammary Artery (ALFRED) to Left Anterior Descending (LAD), reverse saphenous vein graft to the Diagonal 1 (D1) branch of the LAD, reverse saphenous vein graft to the Posterolateral Branch of the Right Coronary Artery (RPLB), reverse saphenous vein graft to the Obtuse Marginal 1 (OM1) 2. Right Leg Endoscopic Vein [place] 3. Intraoperative Vein Mapping SURGEON Leticia Nguyen MD INVENTORY ASSISTANT Kallie Gonzalez PA-C ANESTHESIA General endotracheal PROJECT CONTROL ANALYST BE Gilman MD PREPARATION ChloraPrep. COUNTS Needle, sponge, and instrument counts were correct. DRAINS Two 32-English mediastinal tubes. COMPLICATIONS None. INDICATIONS FOR PROCEDURE The patient is a 76-year-old presenting with chest pain. Patient was noted to have multi-vessel coronary artery disease with left main component. The patient is being brought to the operating room for surgical revascularization therapy. PROCEDURE Patient was brought to the operating room and placed supine on the OR table. Following the induction of adequate general endotracheal anesthesia and placement of appropriate monitoring devices, intraoperative vein mapping was performed which revealed suitable-caliber conduit in bilateral thighs. The patient was then prepped and draped in standard sterile fashion. Next, 2500 units of intravenous heparin was given. The right greater saphenous vein was harvested endoscopically. This appeared to be a useable-caliber conduit. Simultaneously, a median sternotomy was performed and the left internal mammary artery dissected free off the posterior sternal table. The patient was systemically heparinized and anticoagulation monitored by serial ACT measurements. The internal mammary artery had good pulsatile flow in it and was a good-caliber conduit. The pericardium was then divided in the midline, the cradle created and targets analyzed. At this point, all anastomoses were performed in a beating-heart fashion using the Maquet stabilizing system. The left internal mammary artery was anastomosed to the distal LAD (1.75 mm) in an end-to-side fashion using 7-0 Prolene. Segment of saphenous vein graft was then anastomosed to the D1 (1.75 mm) in an end-to-side fashion using 7-0 Prolene. The next segment of saphenous vein graft was then anastomosed to theOM1 (2 mm) in an end-to-side fashion using 7-0 Prolene.The final segment of saphenous vein graft was then anastomosed to the RPLB (1.75 mm) in an end-to-side fashion using 7-0 Prolene. The proximal anastomoses were then constructed to the ascending aorta in a running manner using 6-0 Prolene. All anastomotic sites were inspected and appeared to be hemostatic and patent. Protamine solution was given. Strict hemostasis was assured. The closure was undertaken. 2 chest tubes were placed. The pericardium was reapproximated in the midline. The sternum was approximated using sternal wires. The muscular and fascial layer were then closed in 3 layers. The endoscopic vein harvest site was closed in 2 layers. The patient tolerated the procedure well and was transferred to CVICU in stable condition. Leticia Nguyen MD May 29, 2017 12:23
[2017-05-29] MEDS ORDERED: ACETAMINOPHEN 325 MG TAB PO PRN (13:00)
[2017-05-29] MEDS ORDERED: MORPHINE SULFATE 4 MG/ML INJ IV PUSH PRN (13:00)
[2017-05-29] MEDS ORDERED: INSULIN REGULAR (IV INFUSION) 100 UNITS in SODIUM CHLORIDE 0.9% INJ 99 ML IV PRN (13:00)
[2017-05-29] MEDS: DEXMEDETOMIDINE 200 MCG in NS 48 ML IV PRN ×2 (13:00→13:45)
[2017-05-29] MEDS ORDERED: MEPERIDINE HCL 25 MG/ML VIAL IV PUSH PRN (13:00)
[2017-05-29] MEDS ORDERED: fentaNYL CITRATE 250 MCG/5 ML AMP ONE (13:06)
[2017-05-29] MEDS ORDERED: MIDAZOLAM HCL 2 MG/2 ML VIAL ONE ×2 (13:06)
[2017-05-29] MEDS ORDERED: DOBUTamine PREMIX DRIP 250 ML IV PRN (14:00)
[2017-05-29] MEDS ORDERED: hydrALAZINE HCL 20 MG/ML VIAL IV PUSH PRN (14:00)
[2017-05-29] MEDS ORDERED: METOPROLOL TARTRATE 5 MG/5 ML VIAL IV PUSH PRN (14:00)
[2017-05-29] MEDS ORDERED: PHENYLEPHRINE INJ 40 MG in DEXTROSE 5% IN WATE 500 ML INJ 496 ML IV PRN ×2 (14:00)
[2017-05-29] MEDS ORDERED: LACTATED RINGER'S 1000 ML INJ 500 ML IV PRN (14:00)
[2017-05-29] MEDS ORDERED: NITROGLYCERIN-D5W 50 MG/250 ML 250 ML IV PRN (14:00)
[2017-05-29] MEDS ORDERED: DEXMEDETOMIDINE INJ 200 MCG in SODIUM CHLORIDE 0.9% INJ 50 ML IV PRN (14:00)
[2017-05-29] MEDS ORDERED: DOPamine 800 MG/500 ML INJ 500 ML IV PRN (14:00)
[2017-05-29] MEDS: ACETAMINOPHEN 1000 MG/100 ML 100 ML IV SCH ×2 (14:09→20:12)
[2017-05-29] MEDS: ALBUMIN 5% INJ 250 ML IV PRN ×2 (14:09→20:30)
--- NOTE | 2017-05-29 14:28 | RADRPT ---
EXAM DATE/TIME: 05/29/2017 13:17 [facility] COMPARISON: CHEST SINGLE AP, May 17, 2017, 15:14. INDICATIONS : S/p CABG. MEDICAL HISTORY : Hypertension. coronary artery disease, diabetes, COPD SURGICAL HISTORY : Coronary artery stent. cardiac catheterization ENCOUNTER: Initial ACUITY: 1 day PAIN SCORE: Non-responsive. LOCATION: Bilateral chest FINDINGS: An endotracheal tube has its tip in good position 2 cm above the aniya. Left subclavian central line has its tip in the superior vena cava. A left-sided chest tube is noted in good position within left upper lung field. No pneumothorax is noted. A nasogastric tube is noted in the proximal stomach. Med iastinal drain is noted. Atelectasis is noted within the left midlung field. The heart is mildly prom inent. CONCLUSION: Multiple tubes and lines are in good positions. No pneumothorax is noted. Left mid lung field atelect asis. Mild cardiomegaly. Greg Rodriguez MD on May 29, 2017 at 14:24 Board Certified Radiologist. This report was verified electronically.
[2017-05-29] MEDS: ceFAZolin 2 GM PREMIX 50 ML IV SCH (15:58)
[2017-05-29] MEDS: KETOROLAC TROMETHAMINE 30 MG/ML (IVP) VIAL IV PUSH PRN (15:59)
[2017-05-29] MEDS: RESP: ALBUTEROL 2.5 MG/IPRATROPIUM 0.5 MG NEB (SCH) NEB ×2 (17:00→21:11)
[2017-05-29 17:04] LABS: HEMOGLOBIN 10.9 GM/DL (13.0-17.0); MEAN CELL VOLUME 93.2 FL (80.0-100.0); MEAN CORPUSCULAR HEMOGLOBIN 31.8 PG (27.0-34.0); MEAN CORPUSCULAR HGB CONC 34.1 % (32.0-36.0); MEAN PLATELET VOLUME 10.1 FL (7.0-11.0); PLATELET COUNT 136 TH/MM3 (150-450); RED BLOOD COUNT 3.43 MIL/MM3 (4.50-5.90); RED CELL DISTRIBUTION WIDTH 13.5 % (11.6-17.2); WHITE BLOOD COUNT 15.9 TH/MM3 (4.0-11.0)
[2017-05-29 17:13] LABS: BICARBONATE 22.7 MEQ/L (21.0-32.0); CALCIUM 7.7 MG/DL (8.5-10.1); CREATININE 1.1 MG/DL (0.60-1.30)
[2017-05-29] MEDS: ONDANSETRON HCL 4 MG/2 ML VIAL IV PUSH PRN (17:36)
[2017-05-29] MEDS: SODIUM CHLORIDE 0.9% FLUSH 10 ML FLUSH IV FLUSH SCH (20:12)
[2017-05-29] MEDS: AMIODARONE 200 MG TAB PO SCH (20:12)
[2017-05-29] MEDS: BUDESONIDE-FORMOTEROL 80/4.5 MCG INHALER INH SCH (20:12)
[2017-05-29] MEDS: CLEVIDIPINE INJ 50 ML IV PRN (20:33)
[2017-05-30] VITALS (16 sets, daily range): BP systolic 94–153; BP diastolic 59–86; PULSE 70–106; RESP 14–20; TEMP 97.7–98.9; O2SAT 96–99
[2017-05-30] MEDS: ceFAZolin 2 GM PREMIX 50 ML IV SCH ×3 (00:14→15:29)
[2017-05-30] MEDS: ONDANSETRON HCL 4 MG/2 ML VIAL IV PUSH PRN (00:58)
[2017-05-30] MEDS: KETOROLAC TROMETHAMINE 30 MG/ML (IVP) VIAL IV PUSH PRN ×3 (01:07→20:23)
[2017-05-30] MEDS: ACETAMINOPHEN 1000 MG/100 ML 100 ML IV SCH ×2 (02:39→09:28)
[2017-05-30] MEDS: CLEVIDIPINE INJ 50 ML IV PRN (02:57)
[2017-05-30 04:05] LABS: HEMATOCRIT 32.5 % (39.0-51.0); HEMOGLOBIN 10.9 GM/DL (13.0-17.0); MEAN CELL VOLUME 94.1 FL (80.0-100.0); MEAN CORPUSCULAR HEMOGLOBIN 31.4 PG (27.0-34.0); MEAN CORPUSCULAR HGB CONC 33.4 % (32.0-36.0); MEAN PLATELET VOLUME 10.4 FL (7.0-11.0); PLATELET COUNT 128 TH/MM3 (150-450); RED BLOOD COUNT 3.46 MIL/MM3 (4.50-5.90); RED CELL DISTRIBUTION WIDTH 13.4 % (11.6-17.2); WHITE BLOOD COUNT 12.6 TH/MM3 (4.0-11.0)
[2017-05-30] MEDS: RESP: ALBUTEROL 2.5 MG/IPRATROPIUM 0.5 MG NEB (SCH) NEB ×3 (04:12→20:43)
[2017-05-30 04:20] LABS: BICARBONATE 24.9 MEQ/L (21.0-32.0); CALCIUM 7.5 MG/DL (8.5-10.1); CREATININE 1.02 MG/DL (0.60-1.30)
--- NOTE | 2017-05-30 04:20 | RADRPT ---
EXAM DATE/TIME: 05/30/2017 03:33 [facility] COMPARISON: CHEST SINGLE AP, May 29, 2017, 13:17. INDICATIONS : Short of breath. MEDICAL HISTORY : Hypertension. coronary artery disease, diabetes, COPD SURGICAL HISTORY : CABG. Coronary artery stent. cardiac catheterization ENCOUNTER: Subsequent ACUITY: 2 days PAIN SCORE: 0/10 LOCATION: Bilateral chest FINDINGS: A single view of the chest demonstrates a central and left-sided chest tube without significant pneum othorax. Postoperative median sternotomy. Scattered subsegmental air space disease in the lungs. Prev ious nasogastric tube and endotracheal tube have been removed. CONCLUSION: 1. Interval extubation and removal of NG tube. Central and left chest tubes remain. Scattered subsegm ental air space disease in the lungs. Left central line tip in left brachiocephalic vein. Yehuda Tovar MD on May 30, 2017 at 4:16 Board Certified Radiologist. This report was verified electronically.
[2017-05-30] MEDS ORDERED: PANTOPRAZOLE SOD 40 MG DELAYED RELEASE TAB PO SCH (06:00)
[2017-05-30] MEDS ORDERED: PANTOPRAZOLE SODIUM 40 MG VIAL IV PUSH ONE (06:00)
[2017-05-30] MEDS ORDERED: METOPROLOL TARTRATE 50 MG TAB PO ONE (08:15)
--- NOTE | 2017-05-30 08:22 | EKG ---
Date Performed: 05/30/2017 Time Performed: 03:53:22 PTAGE: 76 years EKG: Sinus rhythm Inferior T wave changes are nonspecific Borderline ECG PREVIOUS TRACING : 05/17/2017 10.06 No significant change from previous tracing noted. DOCTOR: Jr Solano Interpretating Date/Time 05/30/2017 08:21:38
[2017-05-30] MEDS ORDERED: LOVASTATIN 40 MG PO SCH ×2 (09:00)
[2017-05-30] MEDS ORDERED: FUROSEMIDE 40 MG/4 ML VIAL IV PUSH ONE (09:00)
[2017-05-30] MEDS ORDERED: DEXTROSE 50% IN WATER 50 ML VIAL(D50) IV PUSH PRN (09:00)
[2017-05-30] MEDS ORDERED: BISACODYL 10 MG SUPP RECTAL PRN (09:00)
[2017-05-30] MEDS: MAGNESIUM HYDROXIDE SUSP 30 ML CUP PO SCH (09:00)
[2017-05-30] MEDS ORDERED: POTASSIUM CHLORIDE 20 MEQ CONTROLLED RELEASE TAB PO ONE (09:00)
[2017-05-30] MEDS ORDERED: GLUCAGON 1 MG/ML VIAL OTHER PRN (09:00)
[2017-05-30] MEDS: AMIODARONE 200 MG TAB PO SCH ×2 (09:23→20:23)
[2017-05-30] MEDS: CLOPIDOGREL 75 MG TAB PO SCH (09:23)
[2017-05-30] MEDS ORDERED: INSULIN DETEMIR 100 UNITS/ML VIAL SQ ONE (09:30)
[2017-05-30] MEDS: RESP: ALBUTEROL 2.5 MG/IPRATROPIUM 0.5 MG NEB (PRN) NEB (09:31)
[2017-05-30] MEDS: ASPIRIN 81 MG CHEW TAB PO SCH (09:31)
[2017-05-30] MEDS: FLUoxetine HCL 20 MG CAP PO SCH (09:31)
[2017-05-30] MEDS: BUDESONIDE-FORMOTEROL 80/4.5 MCG INHALER INH SCH ×2 (09:32→20:26)
[2017-05-30] MEDS: MULTIVITAMINS/MINERALS THERAPEUTIC TAB PO SCH (10:02)
[2017-05-30] MEDS: METOCLOPRAMIDE HCL 10 MG/2 ML VIAL IV PUSH SCH ×2 (10:02→17:20)
[2017-05-30] MEDS: SODIUM CHLORIDE 0.9% FLUSH 10 ML FLUSH IV FLUSH SCH ×2 (10:03→20:26)
[2017-05-30] MEDS: INSULIN ASPART SUPPLEMENTAL SCALE SQ SCH ×4 (11:16→22:00)
--- NOTE | 2017-05-30 16:06 | PD.CAR.PN ---
CVT Progress Note Subjective/Hospital Course: A 76-year-old male, patient of Dr. Vicki Stark, Dr. Paul, who is followed also by the [place]. Initially seen 05/17/17.History of coronary artery disease with prior drug-eluting stent to the LAD in April 2016. He has been noticing some off and on mild chest discomfort but significant shortness of breath and fatigue since January 2017. He underwent nuclear stress testing with the [facility] and then underwent cardiac catheterization today by Dr. Paul, which showed an EF of 65%. The left main had a 70% stenosis, the diagonal 90%, the RCA 90%. PAST MEDICAL HISTORY: Includes coronary artery disease, kidney stones, COPD, depressive disorder, primary essential hypertension, some hearing loss, hyperlipidemia, hypertension, osteoarthritis, schizophrenia, diabetes mellitus He also has history of some left carotid disease, approximately 70-80% and was supposed to followup for probable carotid endarterectomy by Dr. Nogueira in [place] at the [place]. PAST SURGICAL HISTORY: Include cardiac catheterization on 04/22/2017 with drug- eluting stent x2 to the LAD. 05/29 surgery: 1. Off-pump Coronary Artery Bypass Grafting x 4 with Left Internal Mammary Artery (ALFRED) to Left Anterior Descending (LAD), reverse saphenous vein graft to the Diagonal 1 (D1) branch of the LAD, reverse saphenous vein graft to the Posterolateral Branch of the Right Coronary Artery (RPLB), reverse saphenous vein graft to the Obtuse Marginal 1 (OM1) 2. Right Leg Endoscopic Vein [place] extubated after surgery crystalloid 2800cc, 535 cell saver 05/30 doing well , weaned off insulin gtt gentle diuresis resume metformin in am ok to transfer to stepdown Objective: GENERAL: A&O x 3 SKIN: Warm and dry. prevena dressing to chest , perla wrap to right leg HEAD: Normocephalic. EYES: No scleral icterus. No injection or drainage. NECK: Supple, trachea midline. No JVD or lymphadenopathy. CARDIOVASCULAR: Regular rate and rhythm without murmurs, gallops, or rubs. RESPIRATORY: Breath sounds equal bilaterally. No accessory muscle use. diminished in bases GASTROINTESTINAL: Abdomen soft, non-tender, nondistended. MUSCULOSKELETAL: No cyanosis, or edema. BACK: Nontender without obvious deformity. No CVA tenderness. Vital Signs Date Time Temp Pulse Resp B/P (MAP) Pulse Ox O2 Delivery O2 Flow Rate FiO2 05/30/17 15:10 97.9 96 18 105/62 (76) 99 05/30/17 15:03 99 Room Air 05/30/17 15:00 92 05/30/17 14:00 93 05/30/17 11:00 97 05/30/17 11:00 96 Room Air 05/30/17 11:00 97.7 91 14 94/59 (71) 96 Arterial Line 05/30/17 09:58 14 05/30/17 09:58 14 05/30/17 09:34 97 Nasal Cannula 21 05/30/17 07:00 84 05/30/17 07:00 98.4 80 14 132/86 (101) 96 142/62 (88) 05/30/17 07:00 97 Room Air 05/30/17 03:00 95 Nasal Cannula 3.00 05/30/17 03:00 98.1 70 18 145/81 (102) 97 153/62 (92) 05/30/17 03:00 70 05/30/17 02:57 157/64 05/29/17 23:00 75 05/29/17 23:00 91 Nasal Cannula 3.00 05/29/17 23:00 97.9 75 18 140/76 (97) 91 139/61 (87) 05/29/17 22:00 152/67 05/29/17 21:11 99 Nasal Cannula 2.00 05/29/17 21:09 148/63 05/29/17 20:44 70 150/67 05/29/17 20:33 70 160/71 05/29/17 19:30 98 Nasal Cannula 2.00 05/29/17 19:30 97.4 68 18 128/76 (93) 98 131/59 (83) 05/29/17 19:00 67 05/29/17 17:04 98 Nasal Cannula 2.00 Result Diagram: 05/30/1733905/30/17339 Telemetry: NSR no acute changes (1) S/P CABG (coronary artery bypass graft) Plan: on ASA plavix, BB , amiodarone , statin OOB ambulate pulm toileting CM eval for HHC (2) Hyperlipemia Plan: on statin (3) Hypertension Plan: controlled / on BB (4) Carotid artery disease Plan: [facility] [place] (5) Coronary artery disease (6) COPD (chronic obstructive pulmonary disease) Plan: on scheduled nebs (7) Depression Plan: home meds resumed Ivelisse Fagan May 30, 2017 16:06
[2017-05-30] MEDS: ACETAMINOPHEN/HYDROcodone 325 MG/5 MG TAB PO PRN (18:19)
[2017-05-30] MEDS: DOCUSATE SODIUM 100 MG CAP PO SCH (20:23)
[2017-05-30] MEDS: SENNOSIDES 8.6 MG TAB PO SCH (20:23)
[2017-05-30] MEDS: METOPROLOL TARTRATE 50 MG TAB PO SCH (20:24)
[2017-05-31] VITALS (27 sets, daily range): BP systolic 114–154; BP diastolic 60–75; PULSE 78–102; RESP 18–20; TEMP 97.6–98.7; O2SAT 95–99
[2017-05-31] MEDS: INSULIN ASPART SUPPLEMENTAL SCALE SQ SCH ×5 (02:00→21:39)
[2017-05-31] MEDS: ceFAZolin 2 GM PREMIX 50 ML IV SCH (02:12)
[2017-05-31] MEDS: METOCLOPRAMIDE HCL 10 MG/2 ML VIAL IV PUSH SCH ×2 (02:12→08:56)
[2017-05-31 05:01] LABS: AUTOMATED NEUTROPHIL # 9.1 TH/MM3 (1.8-7.7); BASOPHIL % 0.2 % (0.0-2.0); EOSINOPHIL % 0.1 % (0.0-4.0); HEMATOCRIT 27.7 % (39.0-51.0); HEMOGLOBIN 9.5 GM/DL (13.0-17.0); LYMPH % 10.1 % (9.0-44.0); LYMPHOCYTE # 1.1 TH/MM3 (1.0-4.8); MEAN CELL VOLUME 92.6 FL (80.0-100.0); MEAN CORPUSCULAR HEMOGLOBIN 31.9 PG (27.0-34.0); MEAN CORPUSCULAR HGB CONC 34.4 % (32.0-36.0); MEAN PLATELET VOLUME 9.8 FL (7.0-11.0); MONO % 6.8 % (0.0-8.0); MONOCYTE # 0.7 TH/MM3 (0-0.9); NEUT % 82.8 % (16.0-70.0); PLATELET COUNT 110 TH/MM3 (150-450); RED BLOOD COUNT 2.99 MIL/MM3 (4.50-5.90); RED CELL DISTRIBUTION WIDTH 13.5 % (11.6-17.2)
[2017-05-31 05:26] LABS: BICARBONATE 25.8 MEQ/L (21.0-32.0); CREATININE 1.08 MG/DL (0.60-1.30); MAGNESIUM 2.1 MG/DL (1.5-2.5)
[2017-05-31] MEDS: PANTOPRAZOLE SOD 40 MG DELAYED RELEASE TAB PO SCH (06:19)
[2017-05-31] MEDS: ACETAMINOPHEN/HYDROcodone 325 MG/5 MG TAB PO PRN ×5 (06:23→20:28)
[2017-05-31] MEDS: RESP: ALBUTEROL 2.5 MG/IPRATROPIUM 0.5 MG NEB (SCH) NEB ×3 (08:13→19:05)
[2017-05-31] MEDS: ASPIRIN 81 MG CHEW TAB PO SCH (08:54)
[2017-05-31] MEDS: MAGNESIUM HYDROXIDE SUSP 30 ML CUP PO SCH (08:54)
[2017-05-31] MEDS: METOPROLOL TARTRATE 50 MG TAB PO SCH ×2 (08:54→20:28)
[2017-05-31] MEDS: CLOPIDOGREL 75 MG TAB PO SCH (08:54)
[2017-05-31] MEDS: POLYETHYLENE GLYCOL 17 GM PKG PO SCH (08:54)
[2017-05-31] MEDS: FLUoxetine HCL 20 MG CAP PO SCH (08:55)
[2017-05-31] MEDS: AMIODARONE 200 MG TAB PO SCH ×2 (08:55→20:29)
[2017-05-31] MEDS: DOCUSATE SODIUM 100 MG CAP PO SCH ×2 (08:55→20:28)
[2017-05-31] MEDS: MULTIVITAMINS/MINERALS THERAPEUTIC TAB PO SCH (08:55)
[2017-05-31] MEDS: SODIUM CHLORIDE 0.9% FLUSH 10 ML FLUSH IV FLUSH SCH ×2 (08:58→20:35)
[2017-05-31] MEDS: BUDESONIDE-FORMOTEROL 80/4.5 MCG INHALER INH SCH ×2 (08:58→20:36)
[2017-05-31] MEDS ORDERED: POTASSIUM CHLORIDE 20 MEQ CONTROLLED RELEASE TAB PO ONE (09:00)
[2017-05-31] MEDS ORDERED: [UNRECOGNIZED DRUG - OTHER] PO SCH (09:00)
[2017-05-31] MEDS ORDERED: LOVASTATIN 40 MG PO SCH (09:00)
--- NOTE | 2017-05-31 12:43 | PD.CAR.PN ---
CVT Progress Note Subjective/Hospital Course: A 76-year-old male, patient of Dr. Vicki Stark, Dr. Paul, who is followed also by the [place]. Initially seen 05/17/17.History of coronary artery disease with prior drug-eluting stent to the LAD in April 2016. He has been noticing some off and on mild chest discomfort but significant shortness of breath and fatigue since January 2017. He underwent nuclear stress testing with the [place] and then underwent cardiac catheterization today by Dr. Paul, which showed an EF of 65%. The left main had a 70% stenosis, the diagonal 90%, the RCA 90%. PAST MEDICAL HISTORY: Includes coronary artery disease, kidney stones, COPD, depressive disorder, primary essential hypertension, some hearing loss, hyperlipidemia, hypertension, osteoarthritis, schizophrenia, diabetes mellitus He also has history of some left carotid disease, approximately 70-80% and was supposed to followup for probable carotid endarterectomy by Dr. Nogueira in [place] at the [place]. PAST SURGICAL HISTORY: Include cardiac catheterization on 04/22/2017 with drug- eluting stent x2 to the LAD. 05/29 surgery: 1. Off-pump Coronary Artery Bypass Grafting x 4 with Left Internal Mammary Artery (ALFRED) to Left Anterior Descending (LAD), reverse saphenous vein graft to the Diagonal 1 (D1) branch of the LAD, reverse saphenous vein graft to the Posterolateral Branch of the Right Coronary Artery (RPLB), reverse saphenous vein graft to the Obtuse Marginal 1 (OM1) 2. Right Leg Endoscopic Vein [place] extubated after surgery crystalloid 2800cc, 535 cell saver 05/30 doing well , weaned off insulin gtt gentle diuresis resume metformin in am ok to transfer to stepdown 05/31 BGM on lower side/ hold on starting metformin leave chest tubes in / drained 230cc/ 12 hrs OOB/ ambulate remains in NSR on room air Objective: GENERAL: A&O x 3 SKIN: Warm and dry. prevena dressing to chest , incision intact to right leg HEAD: Normocephalic. EYES: No scleral icterus. No injection or drainage. NECK: Supple, trachea midline. No JVD or lymphadenopathy. CARDIOVASCULAR: Regular rate and rhythm without murmurs, gallops, or rubs. RESPIRATORY: Breath sounds equal bilaterally. No accessory muscle use. GASTROINTESTINAL: Abdomen soft, non-tender, nondistended. MUSCULOSKELETAL: No cyanosis, or edema. BACK: Nontender without obvious deformity. No CVA tenderness. Vital Signs Date Time Temp Pulse Resp B/P (MAP) Pulse Ox O2 Delivery O2 Flow Rate FiO2 05/31/17 12:00 84 05/31/17 11:00 98.1 89 18 154/73 (100) 97 05/31/17 11:00 95 05/31/17 10:00 86 05/31/17 09:00 102 05/31/17 08:14 95 05/31/17 08:00 102 05/31/17 07:30 97.6 91 18 141/75 (97) 99 05/31/17 07:30 79 05/31/17 06:00 80 05/31/17 05:00 82 05/31/17 04:00 78 05/31/17 03:00 98.7 85 20 131/73 (92) 96 05/31/17 03:00 85 05/31/17 02:00 96 05/31/17 01:00 82 05/31/17 00:00 80 05/30/17 23:00 95 05/30/17 23:00 98.5 92 16 133/82 (99) 97 05/30/17 22:00 102 05/30/17 21:00 98 05/30/17 20:43 96 21 05/30/17 20:00 101 05/30/17 19:00 95 05/30/17 19:00 97 Room Air 05/30/17 19:00 98.9 103 20 149/78 (101) 99 05/30/17 18:00 96 05/30/17 17:00 106 05/30/17 16:00 86 05/30/17 15:10 97.9 96 18 105/62 (76) 99 05/30/17 15:03 99 Room Air 05/30/17 15:00 92 05/30/17 14:00 93 Labs: Laboratory Tests Test 05/31/17 04:50 White Blood Count 11.0 TH/MM3 (4.0-11.0) Red Blood Count 2.99 MIL/MM3 (4.50-5.90) Hemoglobin 9.5 GM/DL (13.0-17.0) Hematocrit 27.7 % (39.0-51.0) Mean Corpuscular Volume 92.6 FL (80.0-100.0) Mean Corpuscular Hemoglobin 31.9 PG (27.0-34.0) Mean Corpuscular Hemoglobin Concent 34.4 % (32.0-36.0) Red Cell Distribution Width 13.5 % (11.6-17.2) Platelet Count 110 TH/MM3 (150-450) Mean Platelet Volume 9.8 FL (7.0-11.0) Neutrophils (%) (Auto) 82.8 % (16.0-70.0) Lymphocytes (%) (Auto) 10.1 % (9.0-44.0) Monocytes (%) (Auto) 6.8 % (0.0-8.0) Eosinophils (%) (Auto) 0.1 % (0.0-4.0) Basophils (%) (Auto) 0.2 % (0.0-2.0) Neutrophils # (Auto) 9.1 TH/MM3 (1.8-7.7) Lymphocytes # (Auto) 1.1 TH/MM3 (1.0-4.8) Monocytes # (Auto) 0.7 TH/MM3 (0-0.9) Eosinophils # (Auto) 0.0 TH/MM3 (0-0.4) Basophils # (Auto) 0.0 TH/MM3 (0-0.2) CBC Comment DIFF FINAL Differential Comment Blood Urea Nitrogen 19 MG/DL (7-18) Creatinine 1.08 MG/DL (0.60-1.30) Random Glucose 101 MG/DL (74-106) Calcium Level 8.0 MG/DL (8.5-10.1) Magnesium Level 2.1 MG/DL (1.5-2.5) Sodium Level 137 MEQ/L (136-145) Potassium Level 3.8 MEQ/L (3.5-5.1) Chloride Level 106 MEQ/L (98-107) Carbon Dioxide Level 25.8 MEQ/L (21.0-32.0) Anion Gap 5 MEQ/L (5-15) Estimat Glomerular Filtration Rate 66 ML/MIN (>89) Result Diagram: 05/31/170 05/31/17 0450 Telemetry: NSR (1) S/P CABG (coronary artery bypass graft) Plan: on ASA plavix, BB , amiodarone , statin OOB ambulate pulm toileting CM eval for HHC leave chest tube in (2) Hyperlipemia Plan: on statin (3) Hypertension Plan: controlled / on BB (4) Carotid artery disease Plan: [facility] [place] (5) Coronary artery disease (6) COPD (chronic obstructive pulmonary disease) Plan: on scheduled nebs (7) Depression Plan: home meds resumed Ivelisse Fagan May 31, 2017 12:43
[2017-05-31] MEDS: SENNOSIDES 8.6 MG TAB PO SCH (20:28)
[2017-06-01] VITALS (25 sets, daily range): BP systolic 112–152; BP diastolic 68–84; PULSE 72–100; RESP 18–21; TEMP 97.7–98.7; O2SAT 95–98
[2017-06-01] MEDS: ACETAMINOPHEN/HYDROcodone 325 MG/5 MG TAB PO PRN ×3 (01:00→21:32)
[2017-06-01] MEDS: PANTOPRAZOLE SOD 40 MG DELAYED RELEASE TAB PO SCH (06:00)
[2017-06-01] MEDS: INSULIN ASPART SUPPLEMENTAL SCALE SQ SCH ×4 (08:00→21:00)
[2017-06-01] MEDS: RESP: ALBUTEROL 2.5 MG/IPRATROPIUM 0.5 MG NEB (SCH) NEB (08:41)
[2017-06-01] MEDS: ASPIRIN 81 MG CHEW TAB PO SCH (09:00)
[2017-06-01] MEDS: FLUoxetine HCL 20 MG CAP PO SCH (09:00)
[2017-06-01] MEDS: POLYETHYLENE GLYCOL 17 GM PKG PO SCH (09:00)
[2017-06-01] MEDS: CLOPIDOGREL 75 MG TAB PO SCH (09:00)
[2017-06-01] MEDS: MULTIVITAMINS/MINERALS THERAPEUTIC TAB PO SCH (09:00)
[2017-06-01] MEDS ORDERED: SOD PHOSPHATE/SOD BIPHOSPHATE (ADULT) ENEMA 133ML RECTAL PRN (09:00)
[2017-06-01] MEDS: BUDESONIDE-FORMOTEROL 80/4.5 MCG INHALER INH SCH ×2 (09:00→21:31)
[2017-06-01] MEDS: AMIODARONE 200 MG TAB PO SCH ×2 (09:00→21:32)
[2017-06-01] MEDS: DOCUSATE SODIUM 100 MG CAP PO SCH ×2 (09:00→21:31)
[2017-06-01] MEDS: SODIUM CHLORIDE 0.9% FLUSH 10 ML FLUSH IV FLUSH SCH ×2 (09:00→21:31)
[2017-06-01] MEDS: METOPROLOL TARTRATE 50 MG TAB PO SCH ×2 (09:00→21:32)
[2017-06-01] MEDS: MAGNESIUM HYDROXIDE SUSP 30 ML CUP PO SCH (09:00)
[2017-06-01 11:09] LABS: CREATININE 0.97 MG/DL (0.60-1.30); MAGNESIUM 2.4 MG/DL (1.5-2.5)
[2017-06-01] MEDS: RESP: ALBUTEROL 2.5 MG/IPRATROPIUM 0.5 MG NEB (PRN) NEB (14:44)
--- NOTE | 2017-06-01 16:04 | PD.CAR.PN ---
CVT Progress Note Subjective/Hospital Course: A 76-year-old male, patient of Dr. Vicki Stark, Dr. Paul, who is followed also by the [facility]. Initially seen 05/17/17.History of coronary artery disease with prior drug-eluting stent to the LAD in April 2016. He has been noticing some off and on mild chest discomfort but significant shortness of breath and fatigue since January 2017. He underwent nuclear stress testing with the [facility] and then underwent cardiac catheterization today by Dr. Paul, which showed an EF of 65%. The left main had a 70% stenosis, the diagonal 90%, the RCA 90%. PAST MEDICAL HISTORY: Includes coronary artery disease, kidney stones, COPD, depressive disorder, primary essential hypertension, some hearing loss, hyperlipidemia, hypertension, osteoarthritis, schizophrenia, diabetes mellitus He also has history of some left carotid disease, approximately 70-80% and was supposed to followup for probable carotid endarterectomy by Dr. Nogueira in [place] at the [facility]. PAST SURGICAL HISTORY: Include cardiac catheterization on 04/22/2017 with drug- eluting stent x2 to the LAD. 05/29 surgery: 1. Off-pump Coronary Artery Bypass Grafting x 4 with Left Internal Mammary Artery (ALFRED) to Left Anterior Descending (LAD), reverse saphenous vein graft to the Diagonal 1 (D1) branch of the LAD, reverse saphenous vein graft to the Posterolateral Branch of the Right Coronary Artery (RPLB), reverse saphenous vein graft to the Obtuse Marginal 1 (OM1) 2. Right Leg Endoscopic Vein [place] extubated after surgery crystalloid 2800cc, 535 cell saver 05/30 doing well , weaned off insulin gtt gentle diuresis resume metformin in am ok to transfer to stepdown 05/31 BGM on lower side/ hold on starting metformin leave chest tubes in / drained 230cc/ 12 hrs OOB/ ambulate remains in NSR on room air 06/01 doing well chest tube dc without difficulty no BM in NSR/ on room air Objective: GENERAL: A&O x 3 SKIN: Warm and dry. prevena dressing to chest / incision intact to right leg HEAD: Normocephalic. EYES: No scleral icterus. No injection or drainage. NECK: Supple, trachea midline. No JVD or lymphadenopathy. CARDIOVASCULAR: Regular rate and rhythm without murmurs, gallops, or rubs. RESPIRATORY: Breath sounds equal bilaterally. No accessory muscle use. GASTROINTESTINAL: Abdomen soft, non-tender, nondistended. MUSCULOSKELETAL: No cyanosis, or edema. BACK: Nontender without obvious deformity. No CVA tenderness. Vital Signs Date Time Temp Pulse Resp B/P (MAP) Pulse Ox O2 Delivery O2 Flow Rate FiO2 06/01/17 12:00 82 06/01/17 12:00 98.0 82 18 149/76 (100) 96 06/01/17 10:00 88 06/01/17 09:00 88 06/01/17 08:45 98 21 06/01/17 08:00 89 06/01/17 07:00 82 06/01/17 07:00 97.7 82 20 152/77 (102) 98 06/01/17 05:00 72 06/01/17 04:00 72 06/01/17 03:00 79 06/01/17 02:00 76 06/01/17 01:00 74 06/01/17 00:00 98.1 81 18 140/84 (102) 95 06/01/17 00:00 80 05/31/17 23:00 93 05/31/17 22:00 92 05/31/17 21:00 92 05/31/17 20:43 98.1 94 18 131/74 (93) 96 05/31/17 20:00 94 05/31/17 19:00 87 05/31/17 18:00 90 05/31/17 17:39 97 21 05/31/17 17:00 83 Labs: Laboratory Tests Test 06/01/17 10:25 Blood Urea Nitrogen 16 MG/DL (7-18) Creatinine 0.97 MG/DL (0.60-1.30) Random Glucose 170 MG/DL (74-106) Calcium Level 8.0 MG/DL (8.5-10.1) Magnesium Level 2.4 MG/DL (1.5-2.5) Sodium Level 138 MEQ/L (136-145) Potassium Level 4.5 MEQ/L (3.5-5.1) Chloride Level 103 MEQ/L (98-107) Carbon Dioxide Level 27.0 MEQ/L (21.0-32.0) Anion Gap 8 MEQ/L (5-15) Estimat Glomerular Filtration Rate 75 ML/MIN (>89) Result Diagram: 05/31/17 0450 06/01/17 1025 Telemetry: NSR (1) S/P CABG (coronary artery bypass graft) Plan: on ASA plavix, BB , amiodarone , statin OOB ambulate pulm toileting CM eval for HHC chest tube removed eval for dc in am (2) Hyperlipemia Plan: on statin (3) Hypertension Plan: controlled / on BB (4) Carotid artery disease Plan: [facility] [place] (5) Coronary artery disease (6) COPD (chronic obstructive pulmonary disease) Plan: on scheduled nebs (7) Depression Plan: home meds resumed Ivelisse Fagan Jun 01, 2017 16:04
[2017-06-01] MEDS: metFORMIN HCL 500 MG TAB PO SCH (17:55)
[2017-06-01] MEDS: SENNOSIDES 8.6 MG TAB PO SCH (21:32)
[2017-06-02] VITALS (17 sets, daily range): BP systolic 100–118; BP diastolic 58–69; PULSE 66–86; RESP 20; TEMP 97.1–98.5; O2SAT 97–98
[2017-06-02] MEDS: PANTOPRAZOLE SOD 40 MG DELAYED RELEASE TAB PO SCH (05:11)
--- NOTE | 2017-06-02 05:31 | RADRPT ---
EXAM DATE/TIME: 06/02/2017 05:09 [facility] COMPARISON: CHEST SINGLE AP, May 30, 2017, 3:33. INDICATIONS : Chest tube removal- Rule out pneumothorax. MEDICAL HISTORY : Hypertension. coronary artery disease, diabetes, COPD SURGICAL HISTORY : CABG. Coronary artery stent. cardiac catheterization ENCOUNTER: Subsequent ACUITY: 1 day PAIN SCORE: Non-responsive. LOCATION: Bilateral chest FINDINGS: Interval removal of left chest tube and mediastinal tube. No evidence of pneumothorax. There is per sistent consolidation in the left lower lobe with loss of delineation of the medial left hemidiaphrag m and air bronchograms. Right lung is clear. Evidence of prior median sternotomy. The heart is nor mal size. CONCLUSION: No evidence of pneumothorax status post removal of left chest tube. Persistent left lower lobe conso lidation. Alejandro Hitchcock MD on June 02, 2017 at 5:27 Board Certified Radiologist. This report was verified electronically.
[2017-06-02] MEDS: ACETAMINOPHEN/HYDROcodone 325 MG/5 MG TAB PO PRN ×2 (08:19→15:46)
[2017-06-02] MEDS: POLYETHYLENE GLYCOL 17 GM PKG PO SCH (08:20)
[2017-06-02] MEDS: MAGNESIUM HYDROXIDE SUSP 30 ML CUP PO SCH (08:20)
[2017-06-02] MEDS: AMIODARONE 200 MG TAB PO SCH (08:21)
[2017-06-02] MEDS: metFORMIN HCL 500 MG TAB PO SCH (08:21)
[2017-06-02] MEDS: CLOPIDOGREL 75 MG TAB PO SCH (08:21)
[2017-06-02] MEDS: FLUoxetine HCL 20 MG CAP PO SCH (08:21)
[2017-06-02] MEDS: DOCUSATE SODIUM 100 MG CAP PO SCH (08:21)
[2017-06-02] MEDS: ASPIRIN 81 MG CHEW TAB PO SCH (08:22)
[2017-06-02] MEDS: MULTIVITAMINS/MINERALS THERAPEUTIC TAB PO SCH (08:22)
[2017-06-02] MEDS: BUDESONIDE-FORMOTEROL 80/4.5 MCG INHALER INH SCH (08:25)
[2017-06-02] MEDS: INSULIN ASPART SUPPLEMENTAL SCALE SQ SCH ×2 (09:24→12:11)
[2017-06-02] MEDS: METOPROLOL TARTRATE 50 MG TAB PO SCH (12:10)
[2017-06-02] MEDS ORDERED: AMIO200T PO (13:32)
[2017-06-02] MEDS ORDERED: DOCU1CAP39 PO (13:32)
[2017-06-02] MEDS ORDERED: HYDR-3516 PO (13:32)
[2017-06-02] MEDS ORDERED: THERM PO (13:32)
--- NOTE | 2017-06-02 13:38 | HHI.DS ---
Discharge Summary Admission Date May 29, 2017 at 05:10 Discharge Date: Jun 02, 2017 Admitting Diagnosis 1. Severe Multi Vessel Coronary Artery Disease. 2. Left Main Stenosis (1) COPD (chronic obstructive pulmonary disease) ICD Codes: J44.9 - Chronic obstructive pulmonary disease, unspecified (2) Coronary artery disease Diagnosis: Principal ICD Codes: I25.10 - Atherosclerotic heart disease of [place] coronary artery without angina pectoris (3) Depression ICD Codes: F32.9 - Major depressive disorder, single episode, unspecified (4) Hyperlipemia Diagnosis: Principal ICD Codes: E78.5 - Hyperlipidemia, unspecified (5) Hypertension Diagnosis: Principal ICD Codes: I10 - Essential (primary) hypertension (6) Carotid artery disease Diagnosis: Principal ICD Codes: I77.9 - Disorder of arteries and arterioles, unspecified (7) S/P CABG (coronary artery bypass graft) Diagnosis: Secondary ICD Codes: Z95.1 - Presence of aortocoronary bypass graft Procedures 05/29 1. Off-pump Coronary Artery Bypass Grafting x 4 with Left Internal Mammary Artery (ALFRED) to Left Anterior Descending (LAD), reverse saphenous vein graft to the Diagonal 1 (D1) branch of the LAD, reverse saphenous vein graft to the Posterolateral Branch of the Right Coronary Artery (RPLB), reverse saphenous vein graft to the Obtuse Marginal 1 (OM1) 2. Right Leg Endoscopic Vein [place] 3. Intraoperative Vein Mapping Brief History A 76-year-old male, patient of Dr. Vicki Stark, Dr. Paul, who is followed also by the [place]. Initially seen 05/17/17.History of coronary artery disease with prior drug-eluting stent to the LAD in April 2016. He has been noticing some off and on mild chest discomfort but significant shortness of breath and fatigue since January 2017. He underwent nuclear stress testing with the [facility] and then underwent cardiac catheterization today by Dr. Paul, which showed an EF of 65%. The left main had a 70% stenosis, the diagonal 90%, the RCA 90%. PAST MEDICAL HISTORY: Includes coronary artery disease, kidney stones, COPD, depressive disorder, primary essential hypertension, some hearing loss, hyperlipidemia, hypertension, osteoarthritis, schizophrenia, diabetes mellitus He also has history of some left carotid disease, approximately 70-80% and was supposed to followup for probable carotid endarterectomy by Dr. Nogueira in [place] at the [facility]. PAST SURGICAL HISTORY: Include cardiac catheterization on 04/22/2017 with drug- eluting stent x2 to the LAD. CBC/BMP: 05/31/17 0450 06/01/17 1025 Significant Findings Laboratory Tests Test 05/31/17 04:50 06/01/17 10:25 Red Blood Count 2.99 MIL/MM3 (4.50-5.90) Hemoglobin 9.5 GM/DL (13.0-17.0) Hematocrit 27.7 % (39.0-51.0) Platelet Count 110 TH/MM3 (150-450) Neutrophils (%) (Auto) 82.8 % (16.0-70.0) Neutrophils # (Auto) 9.1 TH/MM3 (1.8-7.7) Blood Urea Nitrogen 19 MG/DL (7-18) Calcium Level 8.0 MG/DL (8.5-10.1) 8.0 MG/DL (8.5-10.1) Estimat Glomerular Filtration Rate 66 ML/MIN (>89) 75 ML/MIN (>89) Random Glucose 170 MG/DL (74-106) Imaging Last Impressions Chest X-Ray 06/02/17 0600 Signed Impressions: Service Date/Time: Friday, June 02, 2017 05:09 - CONCLUSION: No evidence of pneumothorax status post removal of left chest tube. Persistent left lower lobe consolidation. Alejandro Hitchcock MD PE at Discharge GENERAL: A&O x 3 SKIN: Warm and dry. prevena dressing to chest , incision intact to right [facility] therapy site coordinator: Normocephalic. EYES: No scleral icterus. No injection or drainage. NECK: Supple, trachea midline. No JVD or lymphadenopathy. CARDIOVASCULAR: Regular rate and rhythm without murmurs, gallops, or rubs. RESPIRATORY: Breath sounds equal bilaterally. No accessory muscle use. slightly diminished in bases GASTROINTESTINAL: Abdomen soft, non-tender, nondistended. MUSCULOSKELETAL: No cyanosis, or edema. BACK: Nontender without obvious deformity. No CVA tenderness. Hospital Course 05/29 surgery: 1. Off-pump Coronary Artery Bypass Grafting x 4 with Left Internal Mammary Artery (ALFRED) to Left Anterior Descending (LAD), reverse saphenous vein graft to the Diagonal 1 (D1) branch of the LAD, reverse saphenous vein graft to the Posterolateral Branch of the Right Coronary Artery (RPLB), reverse saphenous vein graft to the Obtuse Marginal 1 (OM1) 2. Right Leg Endoscopic Vein [place] extubated after surgery crystalloid 2800cc, 535 cell saver 05/30 doing well , weaned off insulin gtt gentle diuresis resume metformin in am ok to transfer to stepdown 05/31 BGM on lower side/ hold on starting metformin leave chest tubes in / drained 230cc/ 12 hrs OOB/ ambulate remains in NSR on room air 06/01 doing well chest tube dc without difficulty no BM in NSR/ on room air 06/02 Doing well, stable for dc to SNF on room air + BM Pt Condition on Discharge: Good Discharge Disposition: Discharge to SNF Discharge Instructions DIET: Follow Instructions for: Heart Healthy Diet Activities you can perform: Full Weight Bearing, Shower Only-No Bath Activities to avoid: Strenuous Activity, Driving Additional Activity Instructio: no lifting > 8 lbs or gallon of milk Follow up Referrals: Cardiology - 4 Weeks with Shankar Paul DO PCP Follow-up - 2 Weeks with [facility] - 2 Weeks with Ievlisse Fagan New Medications: Amiodarone (Amiodarone) 200 Mg Tab 200 MG PO Q12HR for heart rhythm, #28 TAB 0 Refills Docusate Sodium (Dok) 100 Mg Cap 100 MG PO BID for Constipation, #60 CAP 0 Refills Hydrocodone/Acetaminophen (Hydrocodone-Acetamin 5-325 mg) 5 Mg-325 Mg Tablet 1 TAB PO Q4H PRN for PAIN SCALE 1 TO 5, #40 TAB 0 Refills Multiple Vitamins W/ Minerals (Thera M Plus) 1 Tab 1 TAB PO DAILY for multi vitamin, #30 TAB 2 Refills Continued Medications: Aspirin DR (Aspirin DR) 81 Mg Tabdr 81 MG PO DAILY, TAB 0 Refills Budesonide-Formoterol Inh (Symbicort Inh) 80-4.5 Mcg/Act Aero 1 PUFF INH Q12HR for Asthma Management, #1 INHALER 0 Refills Capsaicin Topical (Zostrix Arthritis Pain Relief Topical) 0.025% Cream 1 APPLIC TOPICAL QID for Pain Management, #1 TUBE 0 Refills Clopidogrel (Clopidogrel) 75 Mg Tab 75 MG PO DAILY for Blood Clot Prevention, #30 TAB 0 Refills Fluoxetine (Fluoxetine) 20 Mg Capsule 20 MG PO DAILY, #30 CAP 0 Refills Fluticasone Nasal [place] (Fluticasone Nasal [place]) 50 Mcg/Act Naspr 50 MCG EACH NARE BID for Allergy Management, #1 BOTTLE 0 Refills 50 mcg/spray Hydrocortisone-Pramoxine Rectal (Hydrocortisone-Pramoxine Rectal) 1-1% Cream 1 APPLIC RECTAL QID PRN for ITCHING/INFLAMMATION, #30 GM 0 Refills Lovastatin (Lovastatin) 40 Mg Tab 40 MG PO DAILY for Cholesterol Management, #30 TAB 0 Refills Metformin (Metformin) 500 Mg Tab 500 MG PO BIDPC for Blood Sugar Management, #60 TAB 0 Refills Do not restart until 05/19/17 Metoprolol Tartrate (Metoprolol Tartrate) 50 Mg Tab 50 MG PO BID, #60 TAB 0 Refills Discontinued Medications: Isosorbide Mononitrate ER (Isosorbide Mononitrate ER) 30 Mg Rajesh 30 MG PO DAILY for Prevent Chest Pain, #30 TAB 0 Refills Ivelisse Fagan Jun 02, 2017 13:38
== END 2017-06-02 16:28 | DRG 236 ==
LOC: HSDI 05:10 → HCVI 13:11 → HCPC 05-30 14:03
PROVIDERS: ADMIT Thoracic Surgery (Cardiothoracic Vascular Surgery); ATTEND Thoracic Surgery (Cardiothoracic Vascular Surgery)
PROC: 06BP4ZZ Excision of Right Saphenous Vein, Percutaneous Endoscopic Approach (ICD-10-PCS; 2017-05-29)
PROC: 02100Z9 Bypass Coronary Artery, One Artery from Left Internal Mammary, Open Approach (ICD-10-PCS; principal; 2017-05-29 07:15)
PROC: 021209W Bypass Coronary Artery, Three Arteries from Aorta with Autologous Venous Tissue, Open Approach (ICD-10-PCS; 2017-05-29 07:15)
DX: I25.10 Atherosclerotic heart disease of native coronary artery without angina pectoris (principal); J44.9 Chronic obstructive pulmonary disease, unspecified; E11.9 Type 2 diabetes mellitus without complications; F32.9 Major depressive disorder, single episode, unspecified; I77.9 Disorder of arteries and arterioles, unspecified; E78.5 Hyperlipidemia, unspecified; I10 Essential (primary) hypertension; H91.90 Unspecified hearing loss, unspecified ear; M19.90 Unspecified osteoarthritis, unspecified site; Z87.442 Personal history of urinary calculi; Z95.5 Presence of coronary angioplasty implant and graft
CPT/HCPCS: 36430; 71045; 76937; 80048; 82948; 83735; 85014; 85025; 85027; 86850; 86900; 86901; 86920; 88305; 88311; 93005; 94002; 94150; 94640; 94664; 94667; 94668; C1768; C9113; C9248; J0131; J0690; J1644; J1815; J1817; J1885; J1940; J2250; J2370; J2405; J2710; J2720; J2765; J3010; J3370; J3475; J7040; J7050; J7120; P9016; P9045